=== PATIENT | male | born 1950 | race Caucasian/White ===

== ENCOUNTER → 2021-04-02 09:04 | Outpatient (CLI) | payer OTHER, SELFPAY ==
[2021-04-02 10:23] LABS: Add Manual Diff / Slide Review NO; Basophils Absolute Auto 0 /uL (0-100); Basophils Percent Auto 0.5 % (0-2); Eosinophils Absolute Auto 100 /uL (0-450); Eosinophils Percent Auto 1.9 % (2-4); Hemoglobin 15.9 g/dL (13.5-17.5); Lymphocytes Absolute Auto 1900 /uL (1100-4500); Lymphocytes Percent Auto 32.6 % (25-40); Mean Corpuscular HGB Conc 33.7 % (30-36); Mean Corpuscular Hemoglobin 31.7 PG (26-34); Mean Corpuscular Volume 94.1 fL (80-100); Monocytes Absolute Auto 400 /uL (0-900); Monocytes Percent Auto 6.8 % (3-14); Neutrophils Absolute Auto 3500 /uL (1500-7000); Neutrophils Percent Auto 58.2 % (50-75); Platelet Count 237 X10^3/uL (150-400); Red Cell Distribution Width 12.9 % (11.6-14.8); White Blood Cell Count 5.9 X10^3/uL (4.5-11.0)
[2021-04-02 11:06] LABS: Alanine Aminotransferase 28 IU/L (<50); Albumin 4.5 g/dL (3.5-5.0); Albumin Globulin Ratio 1.7 (1.0-2.8); Alkaline Phosphatase 53 U/L (38-126); Aspartate Aminotransferase 24 IU/L (17-59); Bilirubin Total 0.8 mg/dL (0.2-1.3); Blood Urea Nitrogen 17 mg/dL (9-20); Calcium 9.7 mg/dL (8.4-10.2); Carbon Dioxide 30 mmol/L (22-32); Chloride 101 mmol/L (98-107); Cholesterol 201 mg/dL (140-199); Estimated Glomerular Filt Rate > 60.0 mL/min (>60); Globulin 2.7 g/dL (1.7-4.1); Glucose 104 mg/dL (80-110); HDL Cholesterol 52 mg/dL (40-60); HEMOLYSIS < 15 (0-50); LDL Cholesterol Calculated 125 mg/dL (<100); Potassium 4.7 mmol/L (3.4-5.1); Sodium 140 mmol/L (137-145); Total Protein 7.2 g/dL (6.3-8.2); Triglycerides 121 mg/dL (35-150)
[2021-04-02 11:43] LABS: Prostate Specific Antigen 0.459 ng/mL (0.10-4.00)
== END ==
PROVIDERS: PCP Family Medicine; Referring Provider Family Medicine; Visit Provider Family Medicine
DX: C61 Malignant neoplasm of prostate (principal); Z13.220 Encounter for screening for lipoid disorders; Z85.46 Personal history of malignant neoplasm of prostate
CPT/HCPCS: 36415; 80053; 80061; 84153; 85025

== ENCOUNTER → 2021-04-07 09:14 | Outpatient (CLI) | payer OTHER, SELFPAY ==
[2021-04-09 11:58] LABS: Fecal Immunochemical Test Negative (Negative)
== END ==
PROVIDERS: PCP Family Medicine; Referring Provider Family Medicine; Visit Provider Family Medicine
DX: Z12.11 Encounter for screening for malignant neoplasm of colon (principal)
CPT/HCPCS: 82274

== ENCOUNTER 2022-02-22 11:51 | Observation (INO) | payer OTHER, SELFPAY ==
[2022-02-22] VITALS (25 sets, daily range): BP systolic 98–146; BP diastolic 60–118; PULSE 75–214; RESP 15–27; TEMP 36.3–36.6; O2SAT 94–100; BMI 26.4
--- NOTE | 2022-02-22 12:03 | DI.RAD.S_ITS ---
PROCEDURE: XR CHEST 1V INDICATIONS: chest pain TECHNIQUE: One view of the chest was acquired. COMPARISON: None. FINDINGS: Surgical changes and devices: None. Lungs and pleura: Lungs are clear. No pleural effusions or pneumothorax. Mediastinum: Mediastinal contours appear normal. Heart size is normal. Bones and chest wall: No suspicious bony lesions. Overlying soft tissues appear unremarkable. IMPRESSION: No acute cardiopulmonary process demonstrated radiographically. Dictated by: Justin Mclaughlin M.D. on 02/22/2022 at 12:47 Approved by: Justin Mclaughlin M.D. on 02/22/2022 at 12:47
--- NOTE | 2022-02-22 12:22 | ED_ITS ---
HPI - Chest Pain General Chief Complaint: Chest Pain Stated Complaint: Chest pain Time Seen by Provider: 02/22/22 12:08 Source: patient, family and old records reviewed Mode of arrival: Ambulatory Limitations: no limitations History of Present Illness HPI narrative: This is a 71-year-old male with history of prostate cancer who is had brachytherapy and on no other daily medications. Patient states that yesterday afternoon he started having tightness across the top of his chest along the clavicles which has now moved more substernally states it has been persistent it was significantly worse yesterday but still present. It has not radiate elsewhere such as back abdomen or arms. Patient states no diaphoresis. Shortness of breath is present with exertion. He denies any nausea or vomiting he feels lightheaded if he sits up very quickly but states that is actually been going on for a long time. He is had no syncopal episodes. No new swelling in his lower extremities he is had some mild swelling in his left leg over the years. Patient states they are following his PSA regularly for prostate cancer and it is down he is not on any daily medications no known cardiac history. States his only surgeries been cataract. No allergies to medications. No tobacco he drinks 2 or 3 alcoholic drinks nightly on the weekends and sometimes more frequently, no illicit. Primary care is Dr. Taylor. Did have a stress test 5-7 years ago at [facility] and he states it was uneventful. Has never had any other cardiac interventions. Related Data Previous Rx's Medication Instructions Recorded fluocinonide 0.05 % topical 1 applic topical BID-QID PRN dry 04/02/21 ointment skin #60 grams Allergies Allergy/AdvReac Type Severity Reaction Status Date / Time No Known Drug Allergies Allergy Unverified 05/21/21 09:25 Review of Systems Review of Systems ROS Unobtainable: All systems reviewed & are unremarkable except as noted in HPI and below Patient History Medical History Acne (~1984) Cataracts, bilateral (~2019) Hx of malignant neoplasm of prostate Onychomycosis of great toe Screening for hyperlipidemia Seborrheic keratoses Wears glasses Surgical History Anesthesia History of cataract removal with insertion of prosthetic lens History of surgery (~04/24/18) Family History Father Cancer Mother History of emphysema Brother History of heart disease Social History household members: spouse Smoking Status: Former smoker Tobacco: How many years used: 10 quit status: has quit before second hand exposure: Yes (childhood ) alcohol intake: current substance use type: does not use Smoking Status: Former smoker Substance Use Type: does not use Exam Narrative Exam Narrative: GENERAL: Alert and oriented x three, male in [id number] distress HEENT: Head normocephalic, atraumatic, EOMI, pupils reactive, face symmetric, moist mucous membranes NECK: Supple, full range of motion CARDIOVASCULAR: Irregularly irregular and tachycardic rate and rhythm without murmurs, rubs or gallops. No JVD. No swelling bilateral lower extremities. RESPIRATORY: Breath sounds equal bilaterally, no wheezes rales or rhonchi. ABDOMEN: Soft, nontender. Normoactive bowel sounds all 4 quadrants. No guarding or rebound, rigidity, no mass, pulsatile mass or bruit. : No CVA tenderness EXTREMITIES: Normal range of motion, no clubbing or edema. Neurovascularly intact NEUROLOGICAL: Cranial nerves II through XII grossly intact. Moving all extremities SKIN: Warm, dry, no petechiae, no rashes or lesions. Initial Vital Signs Initial Vital Signs: Vital Signs Temperature 97.5 F L 02/22/22 12:00 Pulse Rate 214 H 02/22/22 12:00 Respiratory Rate 18 02/22/22 12:00 Blood Pressure 146/118 H 02/22/22 12:00 Pulse Oximetry 100 02/22/22 12:00 Oxygen Delivery Method 02/22/22 12:00 Course Orders Ordered: ED Orders 02/22/22 12:03 XR chest 1V Stat EKG-12 Lead Stat 02/22/22 12:15 D Dimer Stat 02/22/22 12:24 BNP [NT-proBNP (BNP-Adult 18+)] Stat COVID19 -Nasal RAPID/Pre-Proc Stat Complete Blood Count AUTO DIFF Stat Comprehensive Metabolic Panel Stat Lipase Stat Magnesium Stat Troponin & CK Cardiac Panel Stat 02/22/22 12:43 TSH w/ Reflex to FT4 Stat 02/22/22 14:30 Trop I [Troponin I] Stat Acetaminophen (Acetaminophen 325 Mg Tablet) 975 mg PO Q8H PRN PRN Reason: Pain, Mild (1-3) Apixaban (Apixaban 5 Mg Tablet) 5 mg PO BID SKY Aspirin (Aspirin Ec 81 Mg Tablet) 81 mg PO DAILY [facility] Calcium Carbonate (Calcium Carbonate 500 Mg Tab) 1,000 mg PO Q4HR PRN PRN Reason: Dyspepsia Metoprolol Succinate (Metoprolol Er 25 Mg Tablet) 25 mg PO BID SKY Ondansetron HCl (Ondansetron 4 Mg/2 Ml Inj) 4 mg IV Q8HR PRN PRN Reason: Nausea And Vomiting Discontinued Medications Aspirin (Aspirin 81 Mg Chew Tab) 324 mg PO NOW ONE Stop: 02/22/22 12:23 Last Admin: 02/22/22 12:43 Dose: 324 mg Documented By: KORY Diltiazem HCl (Diltiazem 5 Mg/Ml Sdv) 10 mg IV NOW ONE Stop: 02/22/22 12:23 Last Admin: 02/22/22 12:47 Dose: 10 mg Documented By: KORY Sodium Chloride (Normal Saline 0.9%) 1,000 mls @ 1,000 mls/hr IV BOLUS ONE Stop: 02/22/22 13:21 Last Infusion: 02/22/22 14:00 Dose: 0 mls/hr Documented By: Admin: 02/22/22 12:43 Dose: 1,000 mls/hr Documented By: KORY DILTIAZEM (Diltiazem 125 Mg/125 Ml-D5w) 125 mg in 125 mls @ 5 mls/hr IV TITRATE [facility]; Protocol Last Admin: 02/22/22 14:03 Dose: Not Given Documented By: PHILIPP Metoprolol Tartrate (Metoprolol Ir 25 Mg Tablet) 25 mg PO NOW ONE Stop: 02/22/22 14:00 Last Admin: 02/22/22 14:05 Dose: 25 mg Documented By: PHILIPP Consultations Consultation #1: Dr. Ramos, willing to accept asked that we hold on diltiazem drip and metoprolol short-acting 25 mg preferentially. Ask for repeat troponin at the 2 hours carolyn before we put up stairs as he is having persistent chest pain despite his rate being improved although not totally controlled. We will recontact after 2nd troponin and EKG. Time: 14:11 Vital Signs Vital signs: Vital Signs - 8 hr 02/22/22 12:47 02/22/22 12:30 02/22/22 12:30 Pulse Rate 151 H 115 H Respiratory Rate 23 Blood Pressure 119/82 106/79 Pulse Oximetry 99 Oxygen Delivery Method 02/22/22 12:40 02/22/22 12:55 02/22/22 12:55 Pulse Rate 135 H 98 H Respiratory Rate 22 19 Blood Pressure 117/76 Pulse Oximetry 97 96 Oxygen Delivery Method Room Air 02/22/22 13:00 02/22/22 13:00 02/22/22 13:05 Pulse Rate 96 H Respiratory Rate 18 Blood Pressure 106/69 112/77 Pulse Oximetry 96 Oxygen Delivery Method Room Air 02/22/22 13:05 02/22/22 13:10 02/22/22 13:10 Pulse Rate 100 H 102 H Respiratory Rate 18 16 Blood Pressure 111/69 Pulse Oximetry 96 96 Oxygen Delivery Method 02/22/22 13:15 02/22/22 13:15 02/22/22 13:30 Pulse Rate 104 H Respiratory Rate 20 Blood Pressure 117/77 98/73 Pulse Oximetry 96 Oxygen Delivery Method 02/22/22 13:30 02/22/22 13:48 02/22/22 13:48 Pulse Rate 102 H 113 H Respiratory Rate 15 23 Blood Pressure 104/78 Pulse Oximetry 96 97 Oxygen Delivery Method 02/22/22 14:00 02/22/22 14:01 02/22/22 14:30 Pulse Rate 116 H 108 H Respiratory Rate 19 27 H Blood Pressure 123/79 Pulse Oximetry 98 99 Oxygen Delivery Method 02/22/22 14:40 02/22/22 14:40 02/22/22 15:00 Pulse Rate 106 H Respiratory Rate 27 H Blood Pressure 124/65 108/69 Pulse Oximetry 97 Oxygen Delivery Method 02/22/22 15:00 02/22/22 15:20 Pulse Rate 91 H Respiratory Rate 22 Blood Pressure 111/68 Pulse Oximetry 98 Oxygen Delivery Method MDM - Chest Pain Lab Data Result diagrams: 02/22/22 12:24 02/22/22 12:24 Labs: Lab Results 02/22/22 02/22/22 02/22/22 Range/Units 12:15 12:24 12:24 WBC 8.6 (4.5-11.0) X10^3/uL RBC 5.17 (4.5-5.9) X10^6/uL Hgb 16.9 (13.5-17.5) g/dL Hct 48.6 (41-53) % MCV 94.0 (80-100) fL MCH 32.8 (26-34) PG MCHC 34.8 (30-36) % RDW 12.7 (11.6-14.8) % Plt Count 230 (150-400) X10^3/uL Neut % (Auto) 62.9 (50-75) % Lymph % (Auto) 27.3 (25-40) % Dane % (Auto) 8.7 (3-14) % Eos % (Auto) 0.6 L (2-4) % Baso % (Auto) 0.5 (0-2) % Neut # (Auto) 5400 (2398-2470) /uL Lymph # (Auto) 2400 (5994-6265) /uL Dane # (Auto) 700 (0-900) /uL Eos # (Auto) 100 (0-450) /uL Baso # (Auto) 0 (0-100) /uL D-Dimer 633 H (<500) ng/ml Sodium 141 (137-145) mmol/L Potassium 3.6 (3.4-5.1) mmol/L Chloride 102 (98-107) mmol/L Carbon Dioxide 25 (22-32) mmol/L BUN 13 (9-20) mg/dL Creatinine 0.99 (0.66-1.25) mg/dL Estimated GFR > 60 (>60) mL/min BUN/Creatinine Ratio 13.1 (6-22) Glucose 106 (80-110) mg/dL Calcium 9.5 (8.4-10.2) mg/dL Magnesium 2.1 (1.6-2.3) mg/dL Total Bilirubin 1.1 (0.2-1.3) mg/dL AST 24 (17-59) IU/L ALT 20 (<50) IU/L Alkaline Phosphatase 65 (38-126) U/L Total Creatine Kinase 50 L (55-170) U/L CK-MB (CK-2) TNP CK-MB (CK-2) Rel Index TNP Troponin I < 0.012 (0.01-0.034) ng/mL NT-Pro-B Natriuret Pep (<125) pg/mL Total Protein 8.2 (6.3-8.2) g/dL Albumin 4.5 (3.5-5.0) g/dL Globulin 3.7 (1.7-4.1) g/dL Albumin/Globulin Ratio 1.2 (1.0-2.8) Lipase 41 (23-300) U/L TSH (0.47-4.68) uIU/mL SARS-CoV-2 (PCR) (Negative) 02/22/22 02/22/22 02/22/22 Range/Units 12:24 12:24 12:43 WBC (4.5-11.0) X10^3/uL RBC (4.5-5.9) X10^6/uL Hgb (13.5-17.5) g/dL Hct (41-53) % MCV (80-100) fL MCH (26-34) PG MCHC (30-36) % RDW (11.6-14.8) % Plt Count (150-400) X10^3/uL Neut % (Auto) (50-75) % Lymph % (Auto) (25-40) % Dane % (Auto) (3-14) % Eos % (Auto) (2-4) % Baso % (Auto) (0-2) % Neut # (Auto) (1935-1009) /uL Lymph # (Auto) (4774-9229) /uL Dane # (Auto) (0-900) /uL Eos # (Auto) (0-450) /uL Baso # (Auto) (0-100) /uL D-Dimer (<500) ng/ml Sodium (137-145) mmol/L Potassium (3.4-5.1) mmol/L Chloride (98-107) mmol/L Carbon Dioxide (22-32) mmol/L BUN (9-20) mg/dL Creatinine (0.66-1.25) mg/dL Estimated GFR (>60) mL/min BUN/Creatinine Ratio (6-22) Glucose (80-110) mg/dL Calcium (8.4-10.2) mg/dL Magnesium (1.6-2.3) mg/dL Total Bilirubin (0.2-1.3) mg/dL AST (17-59) IU/L ALT (<50) IU/L Alkaline Phosphatase (38-126) U/L Total Creatine Kinase (55-170) U/L CK-MB (CK-2) CK-MB (CK-2) Rel Index Troponin I (0.01-0.034) ng/mL NT-Pro-B Natriuret Pep 279 H (<125) pg/mL Total Protein (6.3-8.2) g/dL Albumin (3.5-5.0) g/dL Globulin (1.7-4.1) g/dL Albumin/Globulin Ratio (1.0-2.8) Lipase (23-300) U/L TSH 3.51 (0.47-4.68) uIU/mL SARS-CoV-2 (PCR) Negative (Negative) 02/22/22 Range/Units 14:30 WBC (4.5-11.0) X10^3/uL RBC (4.5-5.9) X10^6/uL Hgb (13.5-17.5) g/dL Hct (41-53) % MCV (80-100) fL MCH (26-34) PG MCHC (30-36) % RDW (11.6-14.8) % Plt Count (150-400) X10^3/uL Neut % (Auto) (50-75) % Lymph % (Auto) (25-40) % Dane % (Auto) (3-14) % Eos % (Auto) (2-4) % Baso % (Auto) (0-2) % Neut # (Auto) (1716-9357) /uL Lymph # (Auto) (0845-8062) /uL Dane # (Auto) (0-900) /uL Eos # (Auto) (0-450) /uL Baso # (Auto) (0-100) /uL D-Dimer (<500) ng/ml Sodium (137-145) mmol/L Potassium (3.4-5.1) mmol/L Chloride (98-107) mmol/L Carbon Dioxide (22-32) mmol/L BUN (9-20) mg/dL Creatinine (0.66-1.25) mg/dL Estimated GFR (>60) mL/min BUN/Creatinine Ratio (6-22) Glucose (80-110) mg/dL Calcium (8.4-10.2) mg/dL Magnesium (1.6-2.3) mg/dL Total Bilirubin (0.2-1.3) mg/dL AST (17-59) IU/L ALT (<50) IU/L Alkaline Phosphatase (38-126) U/L Total Creatine Kinase (55-170) U/L CK-MB (CK-2) CK-MB (CK-2) Rel Index Troponin I < 0.012 (0.01-0.034) ng/mL NT-Pro-B Natriuret Pep (<125) pg/mL Total Protein (6.3-8.2) g/dL Albumin (3.5-5.0) g/dL Globulin (1.7-4.1) g/dL Albumin/Globulin Ratio (1.0-2.8) Lipase (23-300) U/L TSH (0.47-4.68) uIU/mL SARS-CoV-2 (PCR) (Negative) Imaging Data Chest x-ray: Radiologist's Impression: [address] [address] XRay Report Signed Patient: Boaz Naranjo MR#: [id number] : 1950 Acct:[id number] Age/Sex: 71 / M Date of Service: 02/22/22 Loc: ED Accession Number: [id number] ?? Procedure: XR chest 1V Ordering Provider: Tess Marroquin D.O. PROCEDURE:? XR CHEST 1V ? INDICATIONS:? chest pain ? TECHNIQUE:? One view of the chest was acquired.? ? COMPARISON:? None. ? FINDINGS:? ? Surgical changes and devices:? None.? ? Lungs and pleura:? Lungs are clear.? No pleural effusions or pneumothorax.? ? Mediastinum:? Mediastinal contours appear normal.? Heart size is normal.? ? Bones and chest wall:? No suspicious bony lesions.? Overlying soft tissues appear unremarkable.? ? IMPRESSION:? No acute cardiopulmonary process demonstrated radiographically. ? ? Dictated by: Justin Mclaughlin M.D. on 02/22/2022 at 12:47 ? ? Approved by: Justin Mclaughlin M.D. on 02/22/2022 at 12:47?? ECG Data Attestation: I personally reviewed and interpreted this ECG as follows: Prior ECG tracings: not available for review Interpretation: AFib with RVR, rate of 133 QRS 86 QTC of 461. No acute ST elevation or depr ession noted. No priors for comparison. MDM Narrative Medical decision making narrative: This is a 71-year-old male with AFib with RVR with chest pain/pressure. Patient does not have any known AFib and does not have a sensation of fast heartbeat. Patient's heart rate was as high as 200 but is more consistently 150-130. Is responsive to diltiazem but does drop his pressure. Patient initial troponin is despite 24 hours of chest pain, chest x-ray shows no acute change. BNP is 279 patient does not appear fluid overloaded no obvious electrolyte abnormalities that are cause for his AFib RVR. Patient case is discussed with hospitalist discussed adding on a D-dimer as he has a remote history of prostate cancer with low PSA levels and repeat troponin at 2:00 a.m. carolyn and EKG if these are still negative plan for admission for AFib RVR. Critical Care Time Critical Care Time Critical Care Time: Yes Total Critical Care Time: 35 Attestation: The high probability of a clinically significant, sudden or life threatening deterioration of the [] system(s) required my full and direct attention, intervention and personal management. The aggregate critical care time was [] minutes. This time is in addition to time spent performing reported procedures but includes the following: [x] Data Review and interpretation [x] Patient assessment and monitoring of vital signs [x] Documentation [x] Medication orders and management Discharge Plan Departure Patient Disposition: Admitted as Observation Clinical Impression: Atrial fibrillation with rapid ventricular response, Chest pain Admit Date/Time: 02/22/22 15:20 Admit Provider: Tenzin Ramos
[2022-02-22 12:40] LABS: Add Manual Diff / Slide Review NO; Basophils Absolute Auto 0 /uL (0-100); Basophils Percent Auto 0.5 % (0-2); Eosinophils Absolute Auto 100 /uL (0-450); Eosinophils Percent Auto 0.6 % (2-4); Hematocrit 48.6 % (41-53); Hemoglobin 16.9 g/dL (13.5-17.5); Lymphocytes Absolute Auto 2400 /uL (1100-4500); Lymphocytes Percent Auto 27.3 % (25-40); Mean Corpuscular HGB Conc 34.8 % (30-36); Mean Corpuscular Hemoglobin 32.8 PG (26-34); Monocytes Absolute Auto 700 /uL (0-900); Monocytes Percent Auto 8.7 % (3-14); Neutrophils Absolute Auto 5400 /uL (1500-7000); Neutrophils Percent Auto 62.9 % (50-75); Platelet Count 230 X10^3/uL (150-400); Red Blood Cell Count 5.17 X10^6/uL (4.5-5.9); Red Cell Distribution Width 12.7 % (11.6-14.8); White Blood Cell Count 8.6 X10^3/uL (4.5-11.0)
[2022-02-22] MEDS: ASPIRIN 81 MG CHEW TAB 324 MG PO (12:43)
[2022-02-22] MEDS: SODIUM CHLORIDE 0.9% 1,000 ML 1000 ML IV (12:43)
[2022-02-22] MEDS: dilTIAZem 5 MG/ML SDV 10 MG IV (12:47)
[2022-02-22 12:51] LABS: Alanine Aminotransferase 20 IU/L (<50); Albumin 4.5 g/dL (3.5-5.0); Albumin Globulin Ratio 1.2 (1.0-2.8); Alkaline Phosphatase 65 U/L (38-126); Aspartate Aminotransferase 24 IU/L (17-59); BUN Creatinine Ratio 13.1 (6-22); Bilirubin Total 1.1 mg/dL (0.2-1.3); Blood Urea Nitrogen 13 mg/dL (9-20); Calcium 9.5 mg/dL (8.4-10.2); Carbon Dioxide 25 mmol/L (22-32); Chloride 102 mmol/L (98-107); Creatine Kinase 50 U/L (55-170); Estimated Glomerular Filt Rate > 60 mL/min (>60); Globulin 3.7 g/dL (1.7-4.1); Glucose 106 mg/dL (80-110); HEMOLYSIS 20 (0-50); Lipase 41 U/L (23-300); Magnesium 2.1 mg/dL (1.6-2.3); Potassium 3.6 mmol/L (3.4-5.1); Sodium 141 mmol/L (137-145); Total Protein 8.2 g/dL (6.3-8.2)
[2022-02-22 13:02] LABS: Troponin I < 0.012 ng/mL (0.01-0.034)
[2022-02-22 13:05] LABS: COVID19 -Nasal RAPID Negative (Negative)
[2022-02-22 13:07] LABS: NT-proBNP (BNP-Adult 18+) 279 pg/mL (<125)
[2022-02-22 13:30] LABS: TSH w/ Reflex to FT4 3.51 uIU/mL (0.47-4.68)
[2022-02-22] MEDS: METOPROLOL IR 25 MG TABLET PO (14:05)
[2022-02-22 14:24] LABS: D Dimer 633 ng/ml (<500)
[2022-02-22 15:02] LABS: Troponin I < 0.012 ng/mL (0.01-0.034)
--- NOTE | 2022-02-22 15:28 | DI.ECHO.S_ITS ---
[place] [facility]---------+ [facility] +---------+ : : [address] : : : : [id number] : : : : Phone: [phone]+ Echocardiogram Report + + :Name: HUMBLE MCDUFFIE Study Date: 02/23/2022 Height: 72 in : :[facility] ReadingLocation: Weight: 195 lb: : Gender: Male BSA: 2.1 m2 : :: 1950 Age: 71 yrs BP: 93/56 mmHg: :Reason For Study: CHEST PAIN : :Ordering Physician: CHELSEY, : :NEAL MARK Performed By: Keena Maher : :Referring: NEAL BARBOSA : + + Interpretation Summary The ejection fraction is estimated to be 55-60%. There are no obvious focal wall motion abnormalities noted . Diastolic parameters suggest probable normal left ventricular diastolic function and normal filling pressures. The right ventricle is normal in size and function. Pulmonary artery pressures cannot be estimated because of the lack of a measurable TR jet velocity. No significnant valvular disease. Procedure: A two-dimensional transthoracic echocardiogram with color flow and Doppler was performed. The study quality was technically adequate. There is no prior echocardiogram noted for this patient. The patient was in sinus rhythm with heart rates between 65-72 bpm during the exam. Left Ventricle: The left ventricle is normal in size and wall thickness. The ejection fraction is estimated to be 55-60%. There are no obvious focal wall motion abnormalities noted but poor endocardial definition reduces the sensitivity for the detection of such. Diastolic parameters suggest probable normal left ventricular diastolic function and normal filling pressures. Right Ventricle: The right ventricle is normal in size and function. Atria: The left atrial size is normal. Right atrial size is normal. There is no Doppler evidence for an interatrial shunt. Mitral Valve: The mitral valve is normal in structure and function. There is trace mitral regurgitation. Aortic Valve: The aortic valve is trileaflet. The aortic valve opens well. There is no aortic valve stenosis. No aortic regurgitation is present. Tricuspid Valve: The tricuspid valve is normal in structure and function. No tricuspid regurgitation. Pulmonary artery pressures cannot be estimated because of the lack of a measurable TR jet velocity. Pulmonic Valve: The pulmonic valve leaflets are thin and pliable; valve motion is normal. There is no pulmonic valvular regurgitation. Great Vessels: The aortic root is normal size. The dimensions of the ascending aorta are normal. The IVC is of normal diameter and collapses greater than 50% with a sniff. This suggests a low right atrial pressure of 3 mm Hg. Pericardium/ Pleura There is no pericardial effusion. There is no pleural effusion. MMode/2D Measurements & Calculations LVIDd: 4.5 cm LVOT diam: 2.0 cm LVIDs: 3.0 cm Ao root diam: 3.2 cm FS: 33.1 % asc Aorta Diam: 3.4 cm EPSS: 0.66 cm Ao Arch Diam (Prox Trans): 2.8 cm IVSd: 0.74 cm LVPWd: 0.92 cm LV marin. diameter/BSA (cm/m^2): 2.1 LV sys. diameter/BSA (cm/m^2): 1.4 LA A2 area: 18.5 cm2 RA long axis: 4.8 cm LA A4 area: 20.2 cm2 RA area: 16.8 cm2 LA length (vol): 5.4 cm RA vol: 50.0 ml LA vol: 59.2 ml RA : 23.7 ml/m2 LA vol index: 28.1 ml/m2 IVC diam: 1.7 cm RVD1 (basal): 3.7 cm RVD2 (mid): 3.0 cm TAPSE: 1.7 cm Doppler Measurements & Calculations Ao V2 max: 135.9 cm/sec LVOT Max Juan: 88.8 cm/sec Ao V2 mean: 97.6 cm/sec LV V1 max P.2 mmHg Ao max P.4 mmHg LV V1 VTI: 17.3 cm Ao mean P.2 mmHg MATTHEW(I,D): 2.0 cm2 Ao V2 VTI: 28.6 cm MATTHEW(V,D): 2.1 cm2 sev ratio: 0.60 MATTHEW indexed to BSA (cm^2/m^2): 0.94 MV E max juan: 68.8 cm/sec PA V2 max: 103.0 cm/sec MV A max juan: 49.1 cm/sec PA V2 mean: 73.6 cm/sec MV E/A: 1.4 PA mean P.3 mmHg Med Peak E' Juan: 7.7 cm/sec PA pr(Accel): 10.5 mmHg E/E' med: 8.9 Lat Peak E' Juan: 8.7 cm/sec E/E' lat: 7.9 E/e' average: 8.4 MV dec time: 0.23 sec SVLVOT): 56.4 ml Reading Physician:THOMAS
--- NOTE | 2022-02-22 16:17 | P.HP_ITS ---
History of Present Illness History of Present Illness Date Patient Seen: 02/22/22 Time Patient Seen: 16:24 Chief complaint: Chest pain Narrative: This is a 71 year old male with PMH of prostate cancer who presents to the emergency room with chest discomfort. Patient states he developed bilateral upper and lateral chest pain (under his shoulders) starting yesterday evening. He took 2 aspirin which did not initially help. He stated it was slightly worse with movement. He was able to eat dinner, and went to bed. Early in the morning around 3 am he woke up this time with substernal chest pain. It was sharp, non- radiating, and associated with dyspnea on exertion. He took more aspirin but this did not help his symptoms. He went to the walk in clinic whom referred him to the ER. He denies palpitations, fever, chills, nausea, vomiting, abdominal pain, lower extremity edema. He reports a chronic left leg swelling which is unchanged recently. \ In the ER, patient was found to be in rapid afib. He was given dilt which slowed his rate but it climbed up. He was also given metorpolol tartarate 25 mg. Dilt drip was ordered but never ininiated. Troponins were negative x2. EKG showed afib with RVR without significant ST or T wave changes. Labs showed an unremar kable CBC, D-dimer was 633 (negative with age adjusted value), chemistries were unremarkable, TSH was 3.51, and troponins were negative x2. COVID testing was negative. CXR showed no acute cardiopulmonary disease. He was admitted for new diagnosis of afib with RVR. Patient History Medical History Acne (~1984) Cataracts, bilateral (~2019) Hx of malignant neoplasm of prostate Onychomycosis of great toe Screening for hyperlipidemia Seborrheic keratoses Wears glasses Surgical History Anesthesia History of cataract removal with insertion of prosthetic lens History of surgery (~04/24/18) Family & Social History Family History Father Cancer Mother History of emphysema Brother History of heart disease Social History: household members spouse Prior Living Arrangements House Safety & Behavioral: Feels Safe in Current Yes Environment Been Physically Hurt or No Threatened By a Person Tobacco & Substance use: Smoking Status Former smoker alcohol intake current Substance Use Type does not use Meds Home Medications and Allergies Home Medications Medication Instructions Recorded Confirmed Type fluocinonide 0.05 % topical 1 applic topical BID-QID PRN dry 04/02/21 02/22/22 Rx ointment skin #60 grams Allergies Allergy/AdvReac Type Severity Reaction Status Date / Time No Known Drug Allergies Allergy Unverified 05/21/21 09:25 Review of Systems Review of Systems Narrative: All other systems reviewed with the patient and are negative unless otherwise s tated. Exam Vital Signs (past 8 hours): - 02/22/22 12:00 02/22/22 12:47 02/22/22 12:06 Temperature 97.5 F L Pulse Rate 214 H 151 H 140 H Respiratory Rate 18 23 Blood Pressure 146/118 H 119/82 Pulse Oximetry 100 98 Oxygen Delivery Method Room Air Oxygen Flow Rate 02/22/22 12:08 02/22/22 12:08 02/22/22 12:30 Temperature Pulse Rate 127 H Respiratory Rate 18 Blood Pressure 143/83 H 106/79 Pulse Oximetry 98 Oxygen Delivery Method Oxygen Flow Rate 02/22/22 12:30 02/22/22 12:40 02/22/22 12:55 Temperature Pulse Rate 115 H 135 H Respiratory Rate 23 22 Blood Pressure 117/76 Pulse Oximetry 99 97 Oxygen Delivery Method Oxygen Flow Rate 02/22/22 12:55 02/22/22 13:00 02/22/22 13:00 Temperature Pulse Rate 98 H 96 H Respiratory Rate 19 18 Blood Pressure 106/69 Pulse Oximetry 96 96 Oxygen Delivery Method Room Air Room Air Oxygen Flow Rate 02/22/22 13:05 02/22/22 13:05 02/22/22 13:10 Temperature Pulse Rate 100 H 102 H Respiratory Rate 18 16 Blood Pressure 112/77 Pulse Oximetry 96 96 Oxygen Delivery Method Oxygen Flow Rate 02/22/22 13:10 02/22/22 13:15 02/22/22 13:15 Temperature Pulse Rate 104 H Respiratory Rate 20 Blood Pressure 111/69 117/77 Pulse Oximetry 96 Oxygen Delivery Method Oxygen Flow Rate 02/22/22 13:30 02/22/22 13:30 02/22/22 13:48 Temperature Pulse Rate 102 H Respiratory Rate 15 Blood Pressure 98/73 104/78 Pulse Oximetry 96 Oxygen Delivery Method Oxygen Flow Rate 02/22/22 13:48 02/22/22 14:00 02/22/22 14:01 Temperature Pulse Rate 113 H 116 H Respiratory Rate 23 19 Blood Pressure 123/79 Pulse Oximetry 97 98 Oxygen Delivery Method Oxygen Flow Rate 02/22/22 14:30 02/22/22 14:40 02/22/22 14:40 Temperature Pulse Rate 108 H 106 H Respiratory Rate 27 H 27 H Blood Pressure 124/65 Pulse Oximetry 99 97 Oxygen Delivery Method Oxygen Flow Rate 02/22/22 15:00 02/22/22 15:00 02/22/22 15:20 Temperature Pulse Rate 91 H Respiratory Rate 22 Blood Pressure 108/69 111/68 Pulse Oximetry 98 Oxygen Delivery Method Oxygen Flow Rate 02/22/22 16:02 Temperature 97.3 F L Pulse Rate 96 H Respiratory Rate 17 Blood Pressure 115/69 Pulse Oximetry 98 Oxygen Delivery Method Oxygen Flow Rate 0 Oxygen Delivery Method Room Air Oxygen Flow Rate 0 Narrative Exam Narrative: General:? Patient is well developed and well nourished, in no distress at this time. HEENT:? Normocephalic, atraumatic, extraocular muscles intact, oral pharynx is clear and mucous membranes are moist. Neck: supple and symmetric, trachea is midline, no cervical adenopathy. Negative for JVD Chest:? Normal AP diameter and contour without kyphoscoliosis, no tachypnea, equal chest rise bilaterally. Lungs:? CTA b/l no wheezing rhonchi or rales. Cardio:?irregularly irregular rhythm with normal rate Abdomen: S NT ND. Musculoskeletal:? Muscle strength and tone are equal within normal limits, no deformity. Extremities: No edema or joint effusions. No cyanosis or clubbing. LLE with skin darkening and chronic venous changes, slightly larger than right. Skin:? Pale,? Warm to touch,dry and intact without rashes, ulcerations or petechiae.? Neuro:? Alert and orientated x3,? sensation to touch intact in all extremities, no gross deficits noted of cranial nerves. Psych:? Patient has a well-kept appearance, appropriate affect, mental status attitude thought context and judgment are appropriate for age. Objective ECG Impression: afib with RVR, no significant ST or T wave abnormalities, as interpreted by me. Labs Result Diagrams: 02/22/22 12:24 02/22/22 12:24 Labs: Laboratory Results - last 24 hr 02/22/22 02/22/22 02/22/22 12:15 12:24 12:24 WBC 8.6 RBC 5.17 Hgb 16.9 Hct 48.6 MCV 94.0 MCH 32.8 MCHC 34.8 RDW 12.7 Plt Count 230 Neut % (Auto) 62.9 Lymph % (Auto) 27.3 [place] % (Auto) 8.7 Eos % (Auto) 0.6 L Baso % (Auto) 0.5 Neut # (Auto) 5400 Lymph # (Auto) 2400 [place] # (Auto) 700 Eos # (Auto) 100 Baso # (Auto) 0 D-Dimer 633 H Sodium 141 Potassium 3.6 Chloride 102 Carbon Dioxide 25 BUN 13 Creatinine 0.99 Estimated GFR > 60 BUN/Creatinine Ratio 13.1 Glucose 106 Calcium 9.5 Magnesium 2.1 Total Bilirubin 1.1 AST 24 ALT 20 Alkaline Phosphatase 65 Total Creatine Kinase 50 L CK-MB (CK-2) TNP CK-MB (CK-2) Rel Index TNP Troponin I < 0.012 NT-Pro-B Natriuret Pep Total Protein 8.2 Albumin 4.5 Globulin 3.7 Albumin/Globulin Ratio 1.2 Lipase 41 TSH SARS-CoV-2 (PCR) 02/22/22 02/22/22 02/22/22 12:24 12:24 12:43 WBC RBC Hgb Hct MCV MCH MCHC RDW Plt Count Neut % (Auto) Lymph % (Auto) [place] % (Auto) Eos % (Auto) Baso % (Auto) Neut # (Auto) Lymph # (Auto) [place] # (Auto) Eos # (Auto) Baso # (Auto) D-Dimer Sodium Potassium Chloride Carbon Dioxide BUN Creatinine Estimated GFR BUN/Creatinine Ratio Glucose Calcium Magnesium Total Bilirubin AST ALT Alkaline Phosphatase Total Creatine Kinase CK-MB (CK-2) CK-MB (CK-2) Rel Index Troponin I NT-Pro-B Natriuret Pep 279 H Total Protein Albumin Globulin Albumin/Globulin Ratio Lipase TSH 3.51 SARS-CoV-2 (PCR) Negative 02/22/22 14:30 WBC RBC Hgb Hct MCV MCH MCHC RDW Plt Count Neut % (Auto) Lymph % (Auto) [place] % (Auto) Eos % (Auto) Baso % (Auto) Neut # (Auto) Lymph # (Auto) [place] # (Auto) Eos # (Auto) Baso # (Auto) D-Dimer Sodium Potassium Chloride Carbon Dioxide BUN Creatinine Estimated GFR BUN/Creatinine Ratio Glucose Calcium Magnesium Total Bilirubin AST ALT Alkaline Phosphatase Total Creatine Kinase CK-MB (CK-2) CK-MB (CK-2) Rel Index Troponin I < 0.012 NT-Pro-B Natriuret Pep Total Protein Albumin Globulin Albumin/Globulin Ratio Lipase TSH SARS-CoV-2 (PCR) Assessment & Plan Assessment & Plan narrative: 1. New diagnosis of atrial fibrillation with RVR - Improved rate with metoprolol and dilt given in the ER. Continue metoprolol succinate 25 mg PO BID for now. Continue to make adjustments depending on telemetry and rate. - TTE ordered - r/o ACS with troponin at 8 hour carolyn - given LLE swelling, r/o DVT. If + for DVT check CTA, if negative D-dimer is below age adjusted cutoff. - CHADS-VASC of 1 at this time. If DVT study negative will start asa daily for stroke prevention. - TSH within normal limits. Check A1c and Am lipid panel. 2. History of prostate cancer Dispo: admitted under observation status, probable discharge home tomorrow if rate is controlled and echocardiogram without significant findings. Code: Full, surrogate decision maker is patient's spouse DVT: pending ultrasound, if negative will be on asa, otherwise low risk for DVT and ppx not indicated. I have utilized all available immediate resources to obtain, update, or review the patient's current medications. Time Spent With Patient Critical Care time: I spent a total of [] minutes of critical care time on this patient's care today; this time is exclusive of procedural time. Scores CHADS-VASc Congestive heart failure: no Hypertension: no Age 75 years or older: no Diabetes mellitus: no Stroke, TIA, or TE: no Vascular disease: no Age 65 to 74 years: yes Sex category (female): Male CHADS-VASc Score: 1 Quality MIPS - Admit I confirm the patient?s Advance Care Plan is present, Code status is documented, Surrogate decision maker is in patient?s record [If Yes, STOP here]: Yes
--- NOTE | 2022-02-22 16:26 | DI.US.S_ITS ---
PROCEDURE: US PERIPH VENOUS LOW EXTREM BI INDICATIONS: AFIB, PAIN, R/O DVT TECHNIQUE: Real-time imaging, as well as color and pulse Doppler interrogation, were performed of the deep veins of both legs from the inguinal ligament to the popliteal fossa. COMPARISON: None. FINDINGS: Right: The right greater saphenous vein, common femoral vein, and popliteal veins appear patent. No intraluminal thrombus identified. There is duplicated versus multiple branching segments involving the right mid femoral vein. Right calf veins not well visualized. Left: There is apparent thrombosis involving the left mid femoral vein branches with associated slow flow. The left mid femoral vein appears duplicated versus containing multiple branching segments. The deep venous system proximal to the femoral vein appear patent without intraluminal thrombus. The calf veins were not well visualized. IMPRESSION: Deep venous thrombosis involving segment of the left mid femoral vein. Preliminary findings were relayed by the dev manager at time of study completion. Dictated by: Ray Butcher M.D. on 02/22/2022 at 17:41 Approved by: Ray Butcher M.D. on 02/22/2022 at 17:46
--- NOTE | 2022-02-22 18:50 | DI.CT.S_ITS ---
PROCEDURE: CT ANGIO CHEST PE PROTOCOL INDICATIONS: Chest pain, short of breath TECHNIQUE: After the administration of intravenous contrast, 2 mm thick sections acquired from the pulmonary apices to the posterior costophrenic angles. For radiation dose reduction, the following was used: automated exposure control, adjustment of mA and/or kV according to patient size. COMPARISON: None. FINDINGS: Image quality: Excellent. Pulmonary arteries: Pulmonary arteries are normal in size, and demonstrate no intraluminal filling defects to suggest central pulmonary embolism. Lungs and pleura: Lungs are clear. No pleural effusions or pneumothorax. Central and peripheral airways are patent. Mild platelike atelectasis both lung bases. Minimal emphysematous changes of both lung apices. Mediastinum: Heart size is normal, without pericardial effusion. No mediastinal or hilar adenopathy. Thoracic aorta is normal in caliber and enhancement. Esophagus is normal in caliber, without hiatal hernia. Bones and chest wall: No suspicious bony lesions. Ribs and thoracic spine appear intact throughout. Thyroid gland unremarkable. No axillary or supraclavicular adenopathy. Abdomen: Visualized upper abdominal solid organs appear normal in the early arterial phase of enhancement. Incidental right hepatic 1.4 cm cyst IMPRESSION: No evidence of pulmonary embolism, aortic dissection or aneurysm. Bibasilar platelike atelectasis and mild apical pulmonary emphysema Approved by: Josh Cuenca M.D. on 02/22/2022 at 18:20
[2022-02-22] MEDS: METOPROLOL ER 25 MG TABLET PO (20:43)
[2022-02-22] MEDS: APIXABAN 5 MG TABLET PO (20:43)
[2022-02-22 20:54] LABS: Troponin I < 0.012 ng/mL (0.01-0.034)
[2022-02-23] VITALS (8 sets, daily range): BP systolic 93–120; BP diastolic 56–73; PULSE 56–86; RESP 14–18; TEMP 36.4–36.7; O2SAT 95–96
--- NOTE | 2022-02-23 00:21 | PC.NURSE ---
Pt new diagnosis of Afib RVR. Started on 25 mg ER metoprolol tonight. Pressure dropped to 93/56,with MAP 71, other vitals stable. Provider notified. Stated if MAP drops below 65, give 250 cc bolus. Pt sleeping comfortably currently.
[2022-02-23 05:59] LABS: Add Manual Diff / Slide Review NO; Basophils Absolute Auto 0 /uL (0-100); Basophils Percent Auto 0.5 % (0-2); Eosinophils Absolute Auto 100 /uL (0-450); Eosinophils Percent Auto 1.1 % (2-4); Hematocrit 45.6 % (41-53); Hemoglobin 15.7 g/dL (13.5-17.5); Lymphocytes Absolute Auto 2100 /uL (1100-4500); Lymphocytes Percent Auto 31.1 % (25-40); Mean Corpuscular HGB Conc 34.5 % (30-36); Mean Corpuscular Hemoglobin 32.4 PG (26-34); Mean Corpuscular Volume 93.8 fL (80-100); Monocytes Absolute Auto 600 /uL (0-900); Monocytes Percent Auto 8.8 % (3-14); Neutrophils Absolute Auto 3900 /uL (1500-7000); Neutrophils Percent Auto 58.5 % (50-75); Platelet Count 217 X10^3/uL (150-400); Red Blood Cell Count 4.86 X10^6/uL (4.5-5.9); Red Cell Distribution Width 12.7 % (11.6-14.8); White Blood Cell Count 6.6 X10^3/uL (4.5-11.0)
[2022-02-23 06:12] LABS: BUN Creatinine Ratio 15.2 (6-22); Blood Urea Nitrogen 17 mg/dL (9-20); Carbon Dioxide 29 mmol/L (22-32); Chloride 103 mmol/L (98-107); Cholesterol 169 mg/dL (140-199); Estimated Glomerular Filt Rate > 60 mL/min (>60); Glucose 108 mg/dL (80-110); HDL Cholesterol 42 mg/dL (40-60); HEMOLYSIS < 15 (0-50); LDL Cholesterol Calculated 116 mg/dL (<100); Magnesium 2.1 mg/dL (1.6-2.3); Potassium 4.2 mmol/L (3.4-5.1); Sodium 139 mmol/L (137-145); Triglycerides 56 mg/dL (35-150)
[2022-02-23 06:38] LABS: Hemoglobin A1C% w Est Avg Glu 5.5 % (4.0-6.0)
[2022-02-23] MEDS: METOPROLOL ER 25 MG TABLET PO (09:04)
--- NOTE | 2022-02-23 09:11 | P.DS_ITS ---
History of Present Illness History of Present Illness Date Patient Seen: 02/23/22 Time Patient Seen: 09:11 Chief complaint: Chest pain Narrative: This is a 71 year old male with PMH of prostate cancer who presents to the emergency room with chest discomfort. Patient states he developed bilateral upper and lateral chest pain (under his shoulders) starting yesterday evening. He took 2 aspirin which did not initially help. He stated it was slightly worse with movement. He was able to eat dinner, and went to bed. Early in the morning around 3 am he woke up this time with substernal chest pain. It was sharp, non- radiating, and associated with dyspnea on exertion. He took more aspirin but this did not help his symptoms. He went to the walk in clinic whom referred him to the ER. He denies palpitations, fever, chills, nausea, vomiting, abdominal pain, lower extremity edema. He reports a chronic left leg swelling which is unchanged recently. \ In the ER, patient was found to be in rapid afib. He was given dilt which slowed his rate but it climbed up. He was also given metorpolol tartarate 25 mg. Dilt drip was ordered but never ininiated. Troponins were negative x2. EKG showed afib with RVR without significant ST or T wave changes. Labs showed an unremar kable CBC, D-dimer was 633 (negative with age adjusted value), chemistries were unremarkable, TSH was 3.51, and troponins were negative x2. COVID testing was negative. CXR showed no acute cardiopulmonary disease. He was admitted for new diagnosis of afib with RVR. Discharge Providers Provider Date of admission: 02/22/22 15:20 Discharge Date: 02/23/22 Primary care physician: Keo Roach DO Discharge provider: Tenzin Ramos DO Summary Hospital Course Discharge Diagnosis: 1. New diagnosis of atrial fibrillation with RVR, paroxysmal 2. History of prostate cancer 3. DVT of the LLE Hospital Course: This is a 71 year old male with PMH of prostate cancer who presented with chest pain in the setting of afib with RVR. He complained of some chronic LLE swelling, US was obtained and was positive for a DVT. He was started on coumadin given cost, with Lovenox bridging sent to his pharmacy. This will need quick follow up with his PCP for adjustment of coumadin. For his afib with RVR, he returned into sinus rhythm after initiation of beta carmel therapy. This will be continued with metoprolol 25 mg BID as an outpatient. Troponins were negative and chest pain did not recur. Given his DVT and new afib, CTA was performed and was negative for PE. Outpatient follow up with primary care and possible referral to cardiology is recommended as an outpatient. Exam Vital Signs (past 8 hours): - 02/23/22 04:00 02/23/22 03:00 02/23/22 06:42 Temperature 97.9 F Pulse Rate 56 L Respiratory Rate 15 Blood Pressure 96/60 94/68 Pulse Oximetry 95 95 Oxygen Delivery Method Room Air Oxygen Flow Rate 02/23/22 08:20 02/23/22 09:04 Temperature 98.0 F Pulse Rate 61 61 Respiratory Rate 18 Blood Pressure 120/73 120/73 Pulse Oximetry 95 Oxygen Delivery Method Oxygen Flow Rate 0 Oxygen Delivery Method Room Air Oxygen Flow Rate 0 Narrative Exam Narrative: General:? Patient is well developed and well nourished, in no distress at this time. HEENT:? Normocephalic, atraumatic, extraocular muscles intact, oral pharynx is clear and mucous membranes are moist. Neck: supple and symmetric, trachea is midline, no cervical adenopathy. Negative for JVD Chest:? Normal AP diameter and contour without kyphoscoliosis, no tachypnea, equal chest rise bilaterally. Lungs:? CTA b/l no wheezing rhonchi or rales. Cardio:?RRR no m/r/g. Abdomen: S NT ND. Musculoskeletal:? Muscle strength and tone are equal within normal limits, no deformity. Extremities: No edema or joint effusions. No cyanosis or clubbing. LLE with skin darkening and chronic venous changes, slightly larger than right. Skin:? Pale,? Warm to touch,dry and intact without rashes, ulcerations or petechiae.? Neuro:? Alert and orientated x3,? sensation to touch intact in all extremities, no gross deficits noted of cranial nerves. Psych:? Patient has a well-kept appearance, appropriate affect, mental status attitude thought context and judgment are appropriate for age. Objective Labs Result Diagrams: 02/23/22 05:44 02/23/22 05:44 Labs: Laboratory Results - last 24 hr 1002/22/22 02/22/22 12:15 12:24 12:24 WBC 8.6 RBC 5.17 Hgb 16.9 Hct 48.6 MCV 94.0 MCH 32.8 MCHC 34.8 RDW 12.7 Plt Count 230 Neut % (Auto) 62.9 Lymph % (Auto) 27.3 [place] % (Auto) 8.7 Eos % (Auto) 0.6 L Baso % (Auto) 0.5 Neut # (Auto) 5400 Lymph # (Auto) 2400 [place] # (Auto) 700 Eos # (Auto) 100 Baso # (Auto) 0 D-Dimer 633 H Sodium 141 Potassium 3.6 Chloride 102 Carbon Dioxide 25 BUN 13 Creatinine 0.99 Estimated GFR > 60 BUN/Creatinine Ratio 13.1 Glucose 106 Hemoglobin A1c Calcium 9.5 Magnesium 2.1 Total Bilirubin 1.1 AST 24 ALT 20 Alkaline Phosphatase 65 Total Creatine Kinase 50 L CK-MB (CK-2) TNP CK-MB (CK-2) Rel Index TNP Troponin I < 0.012 NT-Pro-B Natriuret Pep Total Protein 8.2 Albumin 4.5 Globulin 3.7 Albumin/Globulin Ratio 1.2 Triglycerides Cholesterol LDL Cholesterol, Calc HDL Cholesterol Lipase 41 TSH SARS-CoV-2 (PCR) 02/22/22 02/22/22 02/22/22 12:24 12:24 12:43 WBC RBC Hgb Hct MCV MCH MCHC RDW Plt Count Neut % (Auto) Lymph % (Auto) [place] % (Auto) Eos % (Auto) Baso % (Auto) Neut # (Auto) Lymph # (Auto) [place] # (Auto) Eos # (Auto) Baso # (Auto) D-Dimer Sodium Potassium Chloride Carbon Dioxide BUN Creatinine Estimated GFR BUN/Creatinine Ratio Glucose Hemoglobin A1c Calcium Magnesium Total Bilirubin AST ALT Alkaline Phosphatase Total Creatine Kinase CK-MB (CK-2) CK-MB (CK-2) Rel Index Troponin I NT-Pro-B Natriuret Pep 279 H Total Protein Albumin Globulin Albumin/Globulin Ratio Triglycerides Cholesterol LDL Cholesterol, Calc HDL Cholesterol Lipase TSH 3.51 SARS-CoV-2 (PCR) Negative 02/22/22 02/22/22 02/23/22 14:30 20:07 05:44 WBC 6.6 RBC 4.86 Hgb 15.7 Hct 45.6 MCV 93.8 MCH 32.4 MCHC 34.5 RDW 12.7 Plt Count 217 Neut % (Auto) 58.5 Lymph % (Auto) 31.1 [place] % (Auto) 8.8 Eos % (Auto) 1.1 L Baso % (Auto) 0.5 Neut # (Auto) 3900 Lymph # (Auto) 2100 [place] # (Auto) 600 Eos # (Auto) 100 Baso # (Auto) 0 D-Dimer Sodium Potassium Chloride Carbon Dioxide BUN Creatinine Estimated GFR BUN/Creatinine Ratio Glucose Hemoglobin A1c Calcium Magnesium Total Bilirubin AST ALT Alkaline Phosphatase Total Creatine Kinase CK-MB (CK-2) CK-MB (CK-2) Rel Index Troponin I < 0.012 < 0.012 NT-Pro-B Natriuret Pep Total Protein Albumin Globulin Albumin/Globulin Ratio Triglycerides Cholesterol LDL Cholesterol, Calc HDL Cholesterol Lipase TSH SARS-CoV-2 (PCR) 02/23/22 02/23/22 05:44 05:44 WBC RBC Hgb Hct MCV MCH MCHC RDW Plt Count Neut % (Auto) Lymph % (Auto) [place] % (Auto) Eos % (Auto) Baso % (Auto) Neut # (Auto) Lymph # (Auto) [place] # (Auto) Eos # (Auto) Baso # (Auto) D-Dimer Sodium 139 Potassium 4.2 Chloride 103 Carbon Dioxide 29 BUN 17 Creatinine 1.12 Estimated GFR > 60 BUN/Creatinine Ratio 15.2 Glucose 108 Hemoglobin A1c 5.5 Calcium 9.0 Magnesium 2.1 Total Bilirubin AST ALT Alkaline Phosphatase Total Creatine Kinase CK-MB (CK-2) CK-MB (CK-2) Rel Index Troponin I NT-Pro-B Natriuret Pep Total Protein Albumin Globulin Albumin/Globulin Ratio Triglycerides 56 Cholesterol 169 LDL Cholesterol, Calc 116 H HDL Cholesterol 42 Lipase TSH SARS-CoV-2 (PCR) [facility] Medical History Acne (~1984) Cataracts, bilateral (~2019) Hx of malignant neoplasm of prostate Onychomycosis of great toe Screening for hyperlipidemia Seborrheic keratoses Wears glasses Surgical History Anesthesia History of cataract removal with insertion of prosthetic lens History of surgery (~04/24/18) Family History Father Cancer Mother History of emphysema Brother History of heart disease Social History household members: spouse Smoking Status: Former smoker Tobacco: How many years used: 10 quit status: has quit before second hand exposure: Yes (childhood ) alcohol intake: current substance use type: does not use Discharge Plan Discharge Plan Patient Disposition: Home Provider Discharge Comment: You were admitted to the hospital with a new diagnosis of atrial fibrillation. You were found to have a blood clot in your left leg, you elected for Coumadin which needs prompt PCP follow up. In the short term take injections twice daily until coumadin is acting in your system. Discharge orders & Medications Prescriptions: New metoprolol succinate 25 mg Tablet Extended Release 24 Hr 25 mg PO BID 30 Days Qty: 60 0RF enoxaparin [Lovenox] 80 mg/0.8 mL syringe 80 mg SUBCUT Q12H 5 Days Qty: 8 0RF warfarin 5 mg tablet 5 mg PO DAILY 30 Days Qty: 30 0RF Continued fluocinonide 0.05 % ointment 1 applic topical BID-QID PRN (Reason: dry skin) Qty: 60 3RF Follow up/Referrals: Keo Roach DO [Primary Care Provider] - 02/24/22 12:00 pm (APPT:02/24 @ [address] ROACH-ARRIVE 15 MINUTES PRIOR TO YOUR SCHEDULED APPOINTMENT TIME ) Diet/Activity/Treatments Diet: Diet as Tolerated Activity: As tolerated Visit Report/Discharge Packet Instructions: DI for Deep Vein Thrombosis, DI for Atrial Fibrillation, Warfarin Discharge Data Primary Care Provider: Keo Roach Attending Provider: Tenzin Ramos
[2022-02-23] MEDS: WARFARIN 5 MG TABLET PO (09:14)
[2022-02-23] MEDS: ENOXAPARIN 100 MG/ML SYRINGE 85 MG SUBCUT (09:23)
--- NOTE | 2022-02-23 11:24 | PC.NURSE ---
Pt A&OX3, VSS, afebrile on RA. He remains NSR on telemetry. Echo completed at bedside.MD at bedside this a.m. celaring patient for discharge and reviewing diagnosis of DVT and new onset afib with anticoagulation plan as well as follow up with PCP. He verbalizes understanding of discharge medications, side effects to watch for as well as follow up and asks appropriate questions. He is escorted to lobby for discharge home with with all of his belongings this a.m. at approximately 1101 a.m.
== END 2022-02-23 11:01 | disposition home or self-care (01) ==
LOC: ED 14:38 → AC 15:21
PROVIDERS: Admitting Provider Internal Medicine; Emergency Provider Emergency Medicine; PCP Family Medicine; Referring Provider Emergency Medicine; Visit Provider Internal Medicine
DX: I48.0 Paroxysmal atrial fibrillation (principal); I82.402 Acute embolism and thrombosis of unspecified deep veins of left lower extremity; Z85.46 Personal history of malignant neoplasm of prostate; Z20.822 Contact with and (suspected) exposure to COVID-19
CPT/HCPCS: 36415; 71045; 71275; 80048; 80053; 80061; 82550; 83036; 83690; 83735; 83880; 84443; 84484; 85025; 85379; 87635; 93005; 93010; 93306; 93970; 96361; 96372; 96374; 99284; 99291; C9803; G0378; J1650

== ENCOUNTER → 2022-03-02 07:01 | Outpatient (CLI) | payer OTHER, SELFPAY ==
[2022-02-22 15:40] VITALS: BMI 26.4
[2022-03-02 08:16] LABS: INR 2.8 (0.9-1.3); Prothrombin Time 32.5 SECONDS (10.1-12.7)
== END ==
PROVIDERS: PCP Family Medicine; Referring Provider Family Medicine; Visit Provider Family Medicine
DX: I48.91 Unspecified atrial fibrillation (principal); Z51.81 Encounter for therapeutic drug level monitoring; Z79.01 Long term (current) use of anticoagulants
CPT/HCPCS: 36415; 85610

== ENCOUNTER → 2022-03-10 10:22 | Outpatient (CLI) | payer OTHER, SELFPAY ==
[2022-02-22 15:40] VITALS: BMI 26.4
[2022-03-10 12:48] LABS: Add Manual Diff / Slide Review NO; Basophils Absolute Auto 0 /uL (0-100); Basophils Percent Auto 0.5 % (0-2); Eosinophils Absolute Auto 100 /uL (0-450); Eosinophils Percent Auto 1.9 % (2-4); Hematocrit 44.2 % (41-53); Hemoglobin 15.1 g/dL (13.5-17.5); Lymphocytes Absolute Auto 2100 /uL (1100-4500); Lymphocytes Percent Auto 36.1 % (25-40); Mean Corpuscular HGB Conc 34.3 % (30-36); Mean Corpuscular Hemoglobin 32.2 PG (26-34); Mean Corpuscular Volume 93.9 fL (80-100); Monocytes Absolute Auto 500 /uL (0-900); Monocytes Percent Auto 8.8 % (3-14); Neutrophils Absolute Auto 3100 /uL (1500-7000); Neutrophils Percent Auto 52.7 % (50-75); Platelet Count 244 X10^3/uL (150-400); Red Cell Distribution Width 12.9 % (11.6-14.8); White Blood Cell Count 5.9 X10^3/uL (4.5-11.0)
[2022-03-10 13:13] LABS: Alanine Aminotransferase 37 IU/L (<50); Albumin Globulin Ratio 1.4 (1.0-2.8); Alkaline Phosphatase 60 U/L (38-126); Aspartate Aminotransferase 21 IU/L (17-59); BUN Creatinine Ratio 15.6 (6-22); Bilirubin Total 0.4 mg/dL (0.2-1.3); Blood Urea Nitrogen 15 mg/dL (9-20); Calcium 9.4 mg/dL (8.4-10.2); Carbon Dioxide 28 mmol/L (22-32); Chloride 103 mmol/L (98-107); Cholesterol 204 mg/dL (140-199); Estimated Glomerular Filt Rate > 60 mL/min (>60); Globulin 2.9 g/dL (1.7-4.1); Glucose 79 mg/dL (80-110); HDL Cholesterol 42 mg/dL (40-60); HEMOLYSIS < 15 (0-50); LDL Cholesterol Calculated 123 mg/dL (<100); Potassium 4.4 mmol/L (3.4-5.1); Sodium 140 mmol/L (137-145); Total Protein 6.9 g/dL (6.3-8.2); Triglycerides 194 mg/dL (35-150)
== END ==
PROVIDERS: PCP Family Medicine; Referring Provider Family Medicine; Visit Provider Family Medicine
DX: Z85.46 Personal history of malignant neoplasm of prostate (principal); Z13.220 Encounter for screening for lipoid disorders; Z12.5 Encounter for screening for malignant neoplasm of prostate
CPT/HCPCS: 36415; 80053; 80061; 85025; G0103

== ENCOUNTER → 2022-03-31 09:30 | Outpatient (CLI) | payer OTHER, SELFPAY ==
[2022-02-22 15:40] VITALS: BMI 26.4
[2022-03-31 10:35] LABS: INR 3.2 (0.9-1.3); Prothrombin Time 36.9 SECONDS (10.1-12.7)
== END ==
PROVIDERS: PCP Family Medicine; Referring Provider Family Medicine; Visit Provider Family Medicine
DX: I48.91 Unspecified atrial fibrillation (principal)
CPT/HCPCS: 36415; 85610

== ENCOUNTER → 2022-04-04 13:41 | Outpatient (CLI) | payer OTHER, SELFPAY ==
[2022-02-22 15:40] VITALS: BMI 26.4
[2022-04-05 13:34] LABS: Fecal Immunochemical Test Negative (Negative)
== END ==
PROVIDERS: PCP Family Medicine; Referring Provider Family Medicine; Visit Provider Family Medicine
DX: Z12.11 Encounter for screening for malignant neoplasm of colon (principal)
CPT/HCPCS: 82274

== ENCOUNTER → 2022-04-11 13:37 | Outpatient (CLI) | payer OTHER, SELFPAY ==
[2022-02-22 15:40] VITALS: BMI 26.4
[2022-04-11 14:24] LABS: Prothrombin Time 82.3 SECONDS (10.1-12.7)
== END ==
PROVIDERS: PCP Family Medicine; Referring Provider Family Medicine; Visit Provider Family Medicine
DX: Z51.81 Encounter for therapeutic drug level monitoring (principal); Z86.718 Personal history of other venous thrombosis and embolism; Z79.01 Long term (current) use of anticoagulants
CPT/HCPCS: 36415; 85610

== ENCOUNTER → 2022-04-15 08:44 | Outpatient (CLI) | payer OTHER, SELFPAY ==
[2022-02-22 15:40] VITALS: BMI 26.4
[2022-04-15 10:35] LABS: INR 1.7 (0.9-1.3)
== END ==
PROVIDERS: PCP Family Medicine; Referring Provider Family Medicine; Visit Provider Family Medicine
DX: I48.0 Paroxysmal atrial fibrillation (principal); Z51.81 Encounter for therapeutic drug level monitoring; Z79.01 Long term (current) use of anticoagulants; Z86.718 Personal history of other venous thrombosis and embolism
CPT/HCPCS: 36415; 85610

== ENCOUNTER → 2022-04-21 09:54 | Outpatient (CLI) | payer OTHER, SELFPAY ==
[2022-02-22 15:40] VITALS: BMI 26.4
[2022-04-21 11:22] LABS: INR 6.8 (0.9-1.3)
== END ==
PROVIDERS: PCP Family Medicine; Referring Provider Family Medicine; Visit Provider Family Medicine
DX: Z79.01 Long term (current) use of anticoagulants (principal); Z51.81 Encounter for therapeutic drug level monitoring
CPT/HCPCS: 36415; 85610

== ENCOUNTER → 2022-04-29 09:44 | Outpatient (CLI) | payer OTHER, SELFPAY ==
[2022-02-22 15:40] VITALS: BMI 26.4
[2022-04-29 12:21] LABS: INR 2.1 (0.9-1.3)
== END ==
PROVIDERS: PCP Family Medicine; Referring Provider Family Medicine; Visit Provider Family Medicine
DX: Z79.01 Long term (current) use of anticoagulants (principal); I48.0 Paroxysmal atrial fibrillation; Z51.81 Encounter for therapeutic drug level monitoring; Z86.718 Personal history of other venous thrombosis and embolism
CPT/HCPCS: 36415; 85610

== ENCOUNTER → 2022-05-07 10:37 | Outpatient (CLI) | payer OTHER, SELFPAY ==
[2022-02-22 15:40] VITALS: BMI 26.4
[2022-05-07 11:47] LABS: INR 1.4 (0.9-1.3); Prothrombin Time 15.7 SECONDS (10.1-12.7)
== END ==
PROVIDERS: PCP Family Medicine; Referring Provider Family Medicine; Visit Provider Family Medicine
DX: I48.0 Paroxysmal atrial fibrillation (principal); Z79.01 Long term (current) use of anticoagulants; Z51.81 Encounter for therapeutic drug level monitoring; Z86.718 Personal history of other venous thrombosis and embolism
CPT/HCPCS: 36415; 85610

== ENCOUNTER → 2022-05-14 09:30 | Outpatient (CLI) | payer OTHER, SELFPAY ==
[2022-02-22 15:40] VITALS: BMI 26.4
[2022-05-14 09:55] LABS: INR 1.7 (0.9-1.3); Prothrombin Time 19.7 SECONDS (10.1-12.7)
== END ==
PROVIDERS: PCP Family Medicine; Referring Provider Family Medicine; Visit Provider Family Medicine
DX: I48.0 Paroxysmal atrial fibrillation (principal); Z86.718 Personal history of other venous thrombosis and embolism; Z51.81 Encounter for therapeutic drug level monitoring; Z79.01 Long term (current) use of anticoagulants
CPT/HCPCS: 36415; 85610

== ENCOUNTER → 2022-05-28 07:57 | Outpatient (CLI) | payer OTHER, SELFPAY ==
[2022-02-22 15:40] VITALS: BMI 26.4
[2022-05-28 09:01] LABS: INR 4.5 (0.9-1.3); Prothrombin Time 52.7 SECONDS (10.1-12.7)
== END ==
PROVIDERS: PCP Family Medicine; Referring Provider Family Medicine; Visit Provider Family Medicine
DX: I48.0 Paroxysmal atrial fibrillation (principal); Z51.81 Encounter for therapeutic drug level monitoring; Z79.01 Long term (current) use of anticoagulants; Z86.718 Personal history of other venous thrombosis and embolism
CPT/HCPCS: 36415; 85610

== ENCOUNTER → 2022-06-17 13:37 | Outpatient (CLI) | payer OTHER, SELFPAY ==
[2022-02-22 15:40] VITALS: BMI 26.4
[2022-06-17 15:25] LABS: INR 2.1 (0.9-1.3); Prothrombin Time 23.8 SECONDS (10.1-12.7)
== END ==
PROVIDERS: PCP Family Medicine; Referring Provider Family Medicine; Visit Provider Family Medicine
DX: I48.0 Paroxysmal atrial fibrillation (principal); Z86.718 Personal history of other venous thrombosis and embolism
CPT/HCPCS: 36415; 85610

== ENCOUNTER → 2022-06-27 07:01 | Outpatient (CLI) | payer OTHER, SELFPAY ==
[2022-02-22 15:40] VITALS: BMI 26.4
[2022-06-27 08:43] LABS: INR 1.4 (0.9-1.3); Prothrombin Time 15.7 SECONDS (10.1-12.7)
== END ==
PROVIDERS: PCP Family Medicine; Referring Provider Family Medicine; Visit Provider Family Medicine
DX: I48.0 Paroxysmal atrial fibrillation (principal); Z86.718 Personal history of other venous thrombosis and embolism
CPT/HCPCS: 36415; 85610

== ENCOUNTER → 2022-09-02 09:17 | Outpatient (CLI) | payer OTHER, SELFPAY ==
[2022-02-22 15:40] VITALS: BMI 26.4
[2022-09-02 09:53] LABS: INR 3.4 (0.9-1.3); Prothrombin Time 39.8 SECONDS (10.1-12.7)
== END ==
PROVIDERS: PCP Family Medicine; Referring Provider Family Medicine; Visit Provider Family Medicine
DX: I48.0 Paroxysmal atrial fibrillation (principal); Z51.81 Encounter for therapeutic drug level monitoring; Z79.01 Long term (current) use of anticoagulants
CPT/HCPCS: 36415; 85610

== ENCOUNTER → 2022-09-07 07:59 | Outpatient (CLI) | payer OTHER, SELFPAY ==
[2022-02-22 15:40] VITALS: BMI 26.4
--- NOTE | 2022-09-07 21:28 | DI.NM.S_ITS ---
DATE OF SERVICE: 09/07/2022 PROCEDURE: Exercise perfusion study. INDICATIONS: Paroxysmal AFib. RADIOPHARMACEUTICAL: 25.5 millicurie technetium-99m Myoview IV was injected at stress and 10.7 millicurie technetium-99m Myoview IV was injected at rest. CARDIAC STRESS: The patient underwent exercise perfusion study under the supervision of an attending staff. The patient walked on Clemente protocol for 8 minutes and achieved maximum heart rate of 146, which was 97% of target heart rate. Resting blood pressure 120/80 and peak blood pressure 162/90 mmHg. ASHLEY - 14%. Achieved 10.1 METS of workload. Baseline rhythm was sinus. During stress, no convincing ischemic changes seen. Occasional isolated PVCs without any complex ventricular arrhythmias or AFib. No chest pain or anginal symptoms. The patient felt dyspnea and fatigue. RAW DATA: There is increased subdiaphragmatic activity. GATED STUDY: Stress LV ejection fraction 73% without any obvious wall motion abnormalities. Resting end-diastolic volume 87 mL. TID ratio 0.81, which is within normal limits. Lung/heart ratio 0.25, which is within normal limits. MYOCARDIAL PERFUSION SCAN: Stress supine, resting supine and stress prone images were compared to each other. Stress supine and resting supine images revealed moderate size, mild to moderately decreased perfusion of inferior wall as well as inferoapex which got completely resolved during stress prone images suggestive of diaphragmatic tissue attenuation artifact. No convincing ischemia or infarction pattern. CONCLUSION: This is a normal myocardial perfusion study with evidence of diaphragmatic tissue attenuation artifact, which got resolved during stress prone images. Good exercise tolerance. ASHLEY -14%. Normal hemodynamic response. No anginal symptoms. No obvious ischemic electrocardiographic changes. No complex arrhythmias. Preserved left ventricular function. Overall, low-risk myocardial perfusion scan. Boaz Naranjo - SHELDON/rut/clary doc#: [id number]/job#: [id number] dd: 09/07/2022 17:09:00 dt: 09/07/2022 21:19:00 DICTATING MD/COPIES TO: Jasmine Apple MD COPIES MNE: LEATHA;
== END ==
PROVIDERS: PCP Family Medicine; Referring Provider Internal Medicine Cardiovascular Disease; Visit Provider Internal Medicine Cardiovascular Disease
DX: I48.0 Paroxysmal atrial fibrillation (principal)
CPT/HCPCS: 78452; 93017; A9502

== ENCOUNTER → 2022-09-13 14:08 | Outpatient (CLI) | payer OTHER, SELFPAY ==
[2022-02-22 15:40] VITALS: BMI 26.4
[2022-09-13 16:10] LABS: INR 1.7 (0.9-1.3); Prothrombin Time 19.8 SECONDS (10.1-12.7)
== END ==
PROVIDERS: PCP Family Medicine; Referring Provider Family Medicine; Visit Provider Family Medicine
DX: I82.409 Acute embolism and thrombosis of unspecified deep veins of unspecified lower extremity (principal)
CPT/HCPCS: 36415; 85610

== ENCOUNTER → 2022-10-04 14:15 | Outpatient (CLI) | payer OTHER, SELFPAY ==
[2022-02-22 15:40] VITALS: BMI 26.4
[2022-10-04 16:02] LABS: INR 1.9 (0.9-1.3); Prothrombin Time 21.5 SECONDS (10.1-12.7)
== END ==
PROVIDERS: PCP Family Medicine; Referring Provider Family Medicine; Visit Provider Family Medicine
DX: I48.91 Unspecified atrial fibrillation (principal)
CPT/HCPCS: 36415; 85610

== ENCOUNTER → 2022-10-27 09:03 | Outpatient (CLI) | payer OTHER, SELFPAY ==
[2022-02-22 15:40] VITALS: BMI 26.4
[2022-10-27 09:57] LABS: INR 1.7 (0.9-1.3); Prothrombin Time 19.1 SECONDS (10.1-12.7)
== END ==
PROVIDERS: PCP Family Medicine; Referring Provider Family Medicine; Visit Provider Family Medicine
DX: I82.409 Acute embolism and thrombosis of unspecified deep veins of unspecified lower extremity (principal)
CPT/HCPCS: 36415; 85610

== ENCOUNTER → 2022-11-07 12:59 | Outpatient (CLI) | payer OTHER, SELFPAY ==
[2022-02-22 15:40] VITALS: BMI 26.4
[2022-11-07 13:56] LABS: INR 2.3 (0.9-1.3); Prothrombin Time 27.1 SECONDS (10.1-12.7)
== END ==
PROVIDERS: PCP Family Medicine; Referring Provider Family Medicine; Visit Provider Family Medicine
DX: I48.0 Paroxysmal atrial fibrillation (principal); Z51.81 Encounter for therapeutic drug level monitoring; Z79.01 Long term (current) use of anticoagulants
CPT/HCPCS: 36415; 85610

== ENCOUNTER → 2022-12-06 07:53 | Outpatient (CLI) | payer OTHER, SELFPAY ==
[2022-02-22 15:40] VITALS: BMI 26.4
--- NOTE | 2022-12-06 | DI.US.S_ITS ---
PROCEDURE: US PERIPH VENOUS LOW EXTREM LT INDICATIONS: ACUTE THROMBOSIS TECHNIQUE: Real-time imaging, as well as color and pulse Doppler interrogation, were performed of the lower extremity deep veins from the inguinal ligament to the popliteal fossa. COMPARISON: None. FINDINGS: A duplicated left superficial femoral vein can be seen. Thrombosis is seen within the distal aspect of 1 of the duplicated superficial femoral veins. No other findings of deep venous thrombosis can be seen. IMPRESSION: Duplicated femoral vein system, with duplication of the superficial femoral veins, with deep venous thrombosis seen within 1 of the duplicated branches. Dictated by: Jimmie Barcenas M.D. on 12/06/2022 at 9:32 Approved by: Jimmie Barcenas M.D. on 12/06/2022 at 9:34
== END ==
PROVIDERS: PCP Family Medicine; Referring Provider Internal Medicine Cardiovascular Disease; Visit Provider Internal Medicine Cardiovascular Disease
DX: Q27.8 Other specified congenital malformations of peripheral vascular system (principal); I82.412 Acute embolism and thrombosis of left femoral vein
CPT/HCPCS: 93971

== ENCOUNTER → 2023-02-08 13:02 | Outpatient (CLI) | payer OTHER, SELFPAY ==
[2022-02-22 15:40] VITALS: BMI 26.4
[2023-02-08 14:34] LABS: INR 2.6 (0.9-1.3); Prothrombin Time 29.9 SECONDS (10.1-12.7)
== END ==
PROVIDERS: PCP Family Medicine; Referring Provider Physician Assistant; Visit Provider Physician Assistant
DX: I48.0 Paroxysmal atrial fibrillation (principal); Z51.81 Encounter for therapeutic drug level monitoring; Z79.01 Long term (current) use of anticoagulants
CPT/HCPCS: 36415; 85610

== ENCOUNTER → 2023-03-21 08:38 | Outpatient (CLI) | payer OTHER, SELFPAY ==
[2022-02-22 15:40] VITALS: BMI 26.4
[2023-03-21 11:00] LABS: INR 3.1 (0.9-1.3)
== END ==
PROVIDERS: PCP Family Medicine; Referring Provider Family Medicine; Visit Provider Family Medicine
DX: Z86.718 Personal history of other venous thrombosis and embolism (principal); I48.0 Paroxysmal atrial fibrillation; Z51.81 Encounter for therapeutic drug level monitoring; Z79.01 Long term (current) use of anticoagulants
CPT/HCPCS: 36415; 85610

== ENCOUNTER → 2023-04-04 09:33 | Outpatient (CLI) | payer OTHER, SELFPAY ==
[2022-02-22 15:40] VITALS: BMI 26.4
[2023-04-04 10:19] LABS: Add Manual Diff / Slide Review NO; Basophils Absolute Auto 0 /uL (0-100); Basophils Percent Auto 0.8 % (0-2); Eosinophils Absolute Auto 200 /uL (0-450); Hematocrit 45.1 % (41-53); Hemoglobin 15.5 g/dL (13.5-17.5); Lymphocytes Absolute Auto 1600 /uL (1100-4500); Lymphocytes Percent Auto 26.5 % (25-40); Mean Corpuscular HGB Conc 34.5 % (30-36); Mean Corpuscular Hemoglobin 32.3 PG (26-34); Mean Corpuscular Volume 93.8 fL (80-100); Monocytes Absolute Auto 500 /uL (0-900); Monocytes Percent Auto 8.1 % (3-14); Neutrophils Absolute Auto 3700 /uL (1500-7000); Neutrophils Percent Auto 61.6 % (50-75); Platelet Count 234 X10^3/uL (150-400); Red Blood Cell Count 4.81 X10^6/uL (4.5-5.9); Red Cell Distribution Width 12.9 % (11.6-14.8)
[2023-04-04 10:44] LABS: Alanine Aminotransferase 25 IU/L (<50); Albumin 4.2 g/dL (3.5-5.0); Albumin Globulin Ratio 1.4 (1.0-2.8); Alkaline Phosphatase 57 U/L (38-126); Aspartate Aminotransferase 25 IU/L (17-59); BUN Creatinine Ratio 15.5 (6-22); Bilirubin Total 0.9 mg/dL (0.2-1.3); Blood Urea Nitrogen 15 mg/dL (9-20); Calcium 9.4 mg/dL (8.4-10.2); Carbon Dioxide 29 mmol/L (22-32); Chloride 102 mmol/L (98-107); Cholesterol 204 mg/dL (140-199); Estimated Glomerular Filt Rate > 60 mL/min (>60); Glucose 111 mg/dL (80-110); HDL Cholesterol 37 mg/dL (40-60); HEMOLYSIS < 15 (0-50); LDL Cholesterol Calculated 142 mg/dL (<100); Potassium 4.5 mmol/L (3.4-5.1); Sodium 137 mmol/L (137-145); Total Protein 7.2 g/dL (6.3-8.2); Triglycerides 124 mg/dL (35-150)
[2023-04-04 11:12] LABS: Prostate Specific Antigen < 0.064 ng/mL (0.10-4.00)
== END ==
PROVIDERS: PCP Family Medicine; Referring Provider Family Medicine; Visit Provider Family Medicine
DX: E78.5 Hyperlipidemia, unspecified (principal); Z85.46 Personal history of malignant neoplasm of prostate; I48.91 Unspecified atrial fibrillation
CPT/HCPCS: 36415; 80053; 80061; 84153; 85025

== ENCOUNTER → 2023-04-07 11:01 | Outpatient (CLI) | payer OTHER, SELFPAY ==
[2022-02-22 15:40] VITALS: BMI 26.4
[2023-04-10 15:03] LABS: Fecal Immunochemical Test Negative (Negative)
== END ==
PROVIDERS: PCP Family Medicine; Referring Provider Family Medicine; Visit Provider Family Medicine
DX: I48.91 Unspecified atrial fibrillation (principal)
CPT/HCPCS: 82274

== ENCOUNTER → 2023-05-16 12:59 | Outpatient (CLI) | payer OTHER, SELFPAY ==
[2022-02-22 15:40] VITALS: BMI 26.4
[2023-05-16 14:24] LABS: Add Manual Diff / Slide Review NO; Basophils Absolute Auto 0 /uL (0-100); Basophils Percent Auto 0.6 % (0-2); Eosinophils Absolute Auto 100 /uL (0-450); Eosinophils Percent Auto 1.2 % (2-4); Hematocrit 45.6 % (41-53); Hemoglobin 15.6 g/dL (13.5-17.5); Lymphocytes Absolute Auto 2100 /uL (1100-4500); Mean Corpuscular HGB Conc 34.2 % (30-36); Mean Corpuscular Hemoglobin 32.1 PG (26-34); Mean Corpuscular Volume 93.7 fL (80-100); Monocytes Absolute Auto 600 /uL (0-900); Monocytes Percent Auto 7.1 % (3-14); Neutrophils Absolute Auto 5200 /uL (1500-7000); Neutrophils Percent Auto 65.1 % (50-75); Platelet Count 220 X10^3/uL (150-400); Red Blood Cell Count 4.86 X10^6/uL (4.5-5.9); Red Cell Distribution Width 12.9 % (11.6-14.8)
[2023-05-16 14:32] LABS: INR 1.2 (0.9-1.3); Prothrombin Time 13.6 SECONDS (9.4-12.5)
[2023-05-16 14:41] LABS: Alanine Aminotransferase 29 IU/L (<50); Albumin 4.3 g/dL (3.5-5.0); Albumin Globulin Ratio 1.4 (1.0-2.8); Alkaline Phosphatase 55 U/L (38-126); BUN Creatinine Ratio 15.2 (6-22); Bilirubin Total 0.9 mg/dL (0.2-1.3); Blood Urea Nitrogen 16 mg/dL (9-20); Calcium 9.9 mg/dL (8.4-10.2); Carbon Dioxide 29 mmol/L (22-32); Chloride 101 mmol/L (98-107); Cholesterol 204 mg/dL (140-199); Estimated Glomerular Filt Rate > 60 mL/min (>60); Glucose 94 mg/dL (80-110); HDL Cholesterol 49 mg/dL (40-60); HEMOLYSIS < 15 (0-50); LDL Cholesterol Calculated 136 mg/dL (<100); Potassium 4.7 mmol/L (3.4-5.1); Sodium 138 mmol/L (137-145); Total Protein 7.3 g/dL (6.3-8.2); Triglycerides 93 mg/dL (35-150)
[2023-05-16 15:09] LABS: Prostate Specific Antigen < 0.064 ng/mL (0.10-4.00)
[2023-05-19 16:02] LABS: Aspartate Aminotransferase 27 IU/L (17-59)
== END ==
LOC: LAB 13:00
PROVIDERS: PCP Family Medicine; Referring Provider Family Medicine; Visit Provider Family Medicine
DX: E78.5 Hyperlipidemia, unspecified (principal); I48.91 Unspecified atrial fibrillation; Z85.46 Personal history of malignant neoplasm of prostate; I82.409 Acute embolism and thrombosis of unspecified deep veins of unspecified lower extremity
CPT/HCPCS: 36415; 80053; 80061; 84153; 85025; 85610

== ENCOUNTER 2023-11-27 05:48 | Emergency (ER) | payer OTHER, SELFPAY ==
[2022-02-22 15:40] VITALS: BMI 26.4
[2023-11-27 06:05] VITALS: BP 120/60; PULSE 51; RESP 16; TEMP 36.4; O2SAT 100; BMI 25.7
--- NOTE | 2023-11-27 06:08 | DI.CT.S_ITS ---
PROCEDURE: CT ABDOMEN PELVIS WO CON INDICATIONS: R FLANK PAIN, POSS STONE TECHNIQUE: Axial sections were acquired from the lung bases to the pubic symphysis. Coronal and sagittal reformats were performed. For radiation dose reduction, the following was used: automated exposure control, adjustment of mA and/or kV according to patient size. COMPARISON: None. FINDINGS: Image quality: Diagnostic. Lower Chest: No significant findings. URINARY: Right Kidney: Minimal right hydronephrosis. No significant perinephric inflammation. No retained intrarenal calculi or contour deforming mass. Right Ureter: Mild right hydroureter. No retained ureteral calculi. Left Kidney: No stones or hydronephrosis. Left Ureter: No hydroureter, ureteral calculus, or periureteric inflammation. Bladder: 2 mm calcification within the urinary bladder just beyond the right ureterovesicular junction. Urinary bladder is otherwise decompressed. No suspicious wall thickening. ABDOMEN: Liver: Mild hepatic steatosis and small hypodensity in segment eight, presumably cyst or benign hemangioma. Gallbladder: No wall thickening or calcified stones. Biliary ducts: No biliary dilation. Pancreas: No ductal dilation. Spleen: Size is within normal limits. Adrenal Glands: No adrenal nodules. Stomach and Bowel: Stomach and small bowel loops are normal caliber. Moderate sigmoid diverticulosis. No acute inflammatory change. Normal appendix. Peritoneum: No abnormal intraperitoneal fluid. No free air. Ventral Wall: Small, wide necked fat containing umbilical hernia. Abdominal Nodes: No enlarged retroperitoneal or mesenteric lymph nodes. Vessels: The abdominal aorta, IVC, and portal vein are of normal caliber. PELVIS: Pelvic Organs: Normal size prostate with several brachytherapy seeds in place. Pelvic Nodes: Unremarkable. Miscellaneous: No inguinal hernias are seen. Bones: No suspicious bone lesions. Partial right SI joint ankylosis. IMPRESSION: Recently passed punctate stone, now within the urinary bladder just beyond the right UVJ. There is minor residual hydroureteronephrosis. No other retained intrarenal calculi. Final interpretation is concordant with preliminary report. Dictated by: Berenice Caruso M.D. on 11/27/2023 at 8:50 Approved by: Berenice Caruso M.D. on 11/27/2023 at 8:55
[2023-11-27] MEDS: KETOROLAC 30 MG/ML VIAL 15 MG IV (06:12)
[2023-11-27] MEDS: ONDANSETRON 4 MG/2 ML INJ IV (06:15)
[2023-11-27] MEDS: SODIUM CHLORIDE 0.9% 1,000 ML 1000 ML IV (06:16)
--- NOTE | 2023-11-27 06:21 | ED.MALEGU ---
HPI - Male Genitourinary <Tess More MD - Last Filed: 11/27/23 15:25> General Chief complaint: Urogenital-Female Stated complaint: kidney stones pain level 8 Time Seen by Provider: 11/27/23 05:55 History of Present Illness HPI Narrative: 73-year-old male with history of AFib on Pradaxa presents for right-sided flank pain since this morning. Patient states that he woke up like normal. He was drinking a cup of coffee when he felt severe right-sided flank pain that radiated around towards his groin. No medications taken prior to arrival. Patient denies history of kidney stones but thinks that he may have 1 at this time. Up until this morning he has been in his usual state of health. Related Data Previous Rx's Medication Instructions Recorded fluocinonide 0.05 % topical 1 applic topical BID-QID PRN dry 04/02/21 ointment skin #60 grams metoprolol succinate 25 mg 25 mg PO BID #180 tabs 02/10/23 tablet,extended release 24 hr dabigatran etexilate 150 mg capsule 150 mg PO BID #60 caps 06/14/23 hydrocodone 5 mg-acetaminophen 325 1 tab PO Q8H PRN pain #10 tabs 11/27/23 mg tablet ondansetron 4 mg disintegrating 4 mg PO Q6H PRN nausea and 11/27/23 tablet vomiting #10 tabs Allergies Allergy/AdvReac Type Severity Reaction Status Date / Time No Known Drug Allergies Allergy Unverified 04/11/23 13:41 Review of Systems <Tess More MD - Last Filed: 11/27/23 15:25> Review of Systems Narrative: See HPI Patient History <Tess More MD - Last Filed: 11/27/23 15:25> Medical History Hyperlipidemia Hx of deep venous thrombosis Atrial fibrillation Anticoagulation goal of INR 2 to 3 Atrial fibrillation with rapid ventricular response Seborrheic keratoses Onychomycosis of great toe Hx of malignant neoplasm of prostate Wears glasses Acne (~1984) Cataracts, bilateral (~2019) Surgical History Anesthesia History of surgery (~04/24/18) History of cataract removal with insertion of prosthetic lens Family History Father Cancer Mother History of emphysema Brother History of heart disease Social History household members: spouse Smoking Status: Former smoker Tobacco: How many years used: 10 quit status: has quit before second hand exposure: Yes (childhood ) alcohol intake: current substance use type: does not use Smoking Status: Former smoker Substance Use Type: does not use Exam <Tess More MD - Last Filed: 11/27/23 15:25> Initial Vital Signs Initial Vital Signs: Vital Signs Temperature 97.6 F 11/27/23 06:05 Pulse Rate 51 L 11/27/23 06:05 Respiratory Rate 16 11/27/23 06:05 Blood Pressure 120/60 11/27/23 06:05 Pulse Oximetry 100 11/27/23 06:05 Oxygen Delivery Method Room Air 11/27/23 06:05 Const: Awake, alert, tearful, in pain Cardiac: regular rate, regular rhythm RESP: unlabored, clear bilaterally, no wheezing GI: Soft, nontender, nondistended, no rebound, no guarding MSK: Right-sided CVA tenderness, no left-sided CVA tenderness Skin: Warm, Dry, intact, no rashes Neuro: AO x3, CN II-XII grossly intact, moves all extremities <Pete Redi DO - Last Filed: 11/27/23 08:43> Initial Vital Signs Initial Vital Signs: Vital Signs Temperature 97.6 F 11/27/23 06:05 Pulse Rate 51 L 11/27/23 06:05 Respiratory Rate 16 11/27/23 06:05 Blood Pressure 120/60 11/27/23 06:05 Pulse Oximetry 100 11/27/23 06:05 Oxygen Delivery Method Room Air 11/27/23 06:05 Course <Tess More MD - Last Filed: 11/27/23 15:25> Orders Ordered: Discontinued Medications Hydromorphone HCl (Hydromorphone 1 Mg Inj) 1 mg IV NOW ONE Stop: 11/27/23 07:15 Last Admin: 11/27/23 07:19 Dose: 1 mg Documented By: MPO Sodium Chloride (Normal Saline 0.9%) 1,000 mls @ 1,000 mls/hr IV BOLUS ONE Stop: 11/27/23 07:07 Last Infusion: 11/27/23 07:18 Dose: Infused Documented By: Admin: 11/27/23 06:16 Dose: 1,000 mls/hr Documented By: VINOD Ketorolac Tromethamine (Ketorolac 30 Mg/Ml Vial) 15 mg IV NOW ONE Stop: 11/27/23 06:09 Last Admin: 11/27/23 06:12 Dose: 15 mg Documented By: VINOD Ondansetron HCl (Ondansetron 4 Mg/2 Ml Inj) 4 mg IV NOW ONE Stop: 11/27/23 06:09 Last Admin: 11/27/23 06:15 Dose: 4 mg Documented By: VINOD Vital Signs Vital signs: Vital Signs - 8 hr 11/27/23 08:57 Pulse Rate 56 L Respiratory Rate 22 Blood Pressure 118/63 Pulse Oximetry 96 Oxygen Delivery Method Room Air <Pete Reid DO - Last Filed: 11/27/23 08:43> Orders Ordered: Discontinued Medications Hydromorphone HCl (Hydromorphone 1 Mg Inj) 1 mg IV NOW ONE Stop: 11/27/23 07:15 Last Admin: 11/27/23 07:19 Dose: 1 mg Documented By: JOELLEN Sodium Chloride (Normal Saline 0.9%) 1,000 mls @ 1,000 mls/hr IV BOLUS ONE Stop: 11/27/23 07:07 Last Infusion: 11/27/23 07:18 Dose: Infused Documented By: Admin: 11/27/23 06:16 Dose: 1,000 mls/hr Documented By: VINOD Ketorolac Tromethamine (Ketorolac 30 Mg/Ml Vial) 15 mg IV NOW ONE Stop: 11/27/23 06:09 Last Admin: 11/27/23 06:12 Dose: 15 mg Documented By: VINOD Ondansetron HCl (Ondansetron 4 Mg/2 Ml Inj) 4 mg IV NOW ONE Stop: 11/27/23 06:09 Last Admin: 11/27/23 06:15 Dose: 4 mg Documented By: VINOD Vital Signs Vital signs: Vital Signs - 8 hr 11/27/23 08:57 Pulse Rate 56 L Respiratory Rate 22 Blood Pressure 118/63 Pulse Oximetry 96 Oxygen Delivery Method Room Air MDM - Male Genitourinary <Tess More MD - Last Filed: 11/27/23 15:25> Lab Data 11/27/23 06:05 11/27/23 06:05 Labs: Lab Results 11/27/23 Range/Units 06:05 WBC 7.0 (4.5-11.0) X10^3/uL RBC 4.95 (4.5-5.9) X10^6/uL Hgb 16.2 (13.5-17.5) g/dL Hct 47.3 (41-53) % MCV 95.5 (80-100) fL MCH 32.7 (26-34) PG MCHC 34.2 (30-36) % RDW 13.1 (11.6-14.8) % Plt Count 253 (150-400) X10^3/uL Neut % (Auto) 50.9 (50-75) % Lymph % (Auto) 38.2 (25-40) % [place] % (Auto) 8.4 (3-14) % Eos % (Auto) 1.6 L (2-4) % Baso % (Auto) 0.9 (0-2) % Neut # (Auto) 3600 (5743-8823) /uL Lymph # (Auto) 2700 (3286-2876) /uL [place] # (Auto) 600 (0-900) /uL Eos # (Auto) 100 (0-450) /uL Baso # (Auto) 100 (0-100) /uL PT 13.1 H (9.4-12.5) SECONDS INR 1.1 (0.9-1.3) Sodium 140 (137-145) mmol/L Potassium 4.0 (3.4-5.1) mmol/L Chloride 106 (98-107) mmol/L Carbon Dioxide 26 (22-32) mmol/L BUN 15 (9-20) mg/dL Creatinine 1.16 (0.66-1.25) mg/dL Estimated GFR > 60 (>60) mL/min BUN/Creatinine Ratio 12.9 (6-22) Glucose 131 H (80-110) mg/dL Calcium 9.8 (8.4-10.2) mg/dL Total Bilirubin 1.0 (0.2-1.3) mg/dL AST 25 (17-59) IU/L ALT 24 (<50) IU/L Alkaline Phosphatase 62 (38-126) U/L Ammonia < 9 L (9-30) umol/L Total Protein 7.9 (6.3-8.2) g/dL Albumin 4.7 (3.5-5.0) g/dL Globulin 3.2 (1.7-4.1) g/dL Albumin/Globulin Ratio 1.5 (1.0-2.8) Lipase 74 (23-300) U/L Urine Dip Bedside Urine Glucose Negative Bedside Urine Bilirubin - Negative Bedside Urine Ketone - Negative Urine Specific [place] 1.020 Bedside Urine Occult Blood - Negative Bedside Urine pH 6.0 Bedside Urine Protein +/- 15 Bedside Urine Urobilinogen - Negative Bedside Urine Nitrite - Negative Bedside Urine Leukocytes - Negative Esterase MDM Narrative Medical decision making narrative: Acute onset right-sided flank pain, concerning for kidney stone. Patient was tearful and does appear to be uncomfortable. Laboratory work, CT imaging ordered for assessment. Toradol, Zofran, and IV fluids ordered. Care of patient signed to Dr. Reid at 0700 Dr reid: Received turned over. Review patient's history and physical and workup up to this point. CT scan shows distal 2 mm UVJ calculus with moderate right hydro nephrosis. Urinalysis shows no signs of infection. He is tolerating oral intake. Will discharge patient home with symptom treatment. He was given strict return precautions. He expressed understanding and agreement. <Pete Reid DO - Last Filed: 11/27/23 08:43> Lab Data Labs: Lab Results 11/27/23 Range/Units 06:05 WBC 7.0 (4.5-11.0) X10^3/uL RBC 4.95 (4.5-5.9) X10^6/uL Hgb 16.2 (13.5-17.5) g/dL Hct 47.3 (41-53) % MCV 95.5 (80-100) fL MCH 32.7 (26-34) PG MCHC 34.2 (30-36) % RDW 13.1 (11.6-14.8) % Plt Count 253 (150-400) X10^3/uL Neut % (Auto) 50.9 (50-75) % Lymph % (Auto) 38.2 (25-40) % [place] % (Auto) 8.4 (3-14) % Eos % (Auto) 1.6 L (2-4) % Baso % (Auto) 0.9 (0-2) % Neut # (Auto) 3600 (4430-8701) /uL Lymph # (Auto) 2700 (0807-4405) /uL [place] # (Auto) 600 (0-900) /uL Eos # (Auto) 100 (0-450) /uL Baso # (Auto) 100 (0-100) /uL PT 13.1 H (9.4-12.5) SECONDS INR 1.1 (0.9-1.3) Sodium 140 (137-145) mmol/L Potassium 4.0 (3.4-5.1) mmol/L Chloride 106 (98-107) mmol/L Carbon Dioxide 26 (22-32) mmol/L BUN 15 (9-20) mg/dL Creatinine 1.16 (0.66-1.25) mg/dL Estimated GFR > 60 (>60) mL/min BUN/Creatinine Ratio 12.9 (6-22) Glucose 131 H (80-110) mg/dL Calcium 9.8 (8.4-10.2) mg/dL Total Bilirubin 1.0 (0.2-1.3) mg/dL AST 25 (17-59) IU/L ALT 24 (<50) IU/L Alkaline Phosphatase 62 (38-126) U/L Ammonia < 9 L (9-30) umol/L Total Protein 7.9 (6.3-8.2) g/dL Albumin 4.7 (3.5-5.0) g/dL Globulin 3.2 (1.7-4.1) g/dL Albumin/Globulin Ratio 1.5 (1.0-2.8) Lipase 74 (23-300) U/L Urine Dip Bedside Urine Glucose Negative Bedside Urine Bilirubin - Negative Bedside Urine Ketone - Negative Urine Specific [place] 1.020 Bedside Urine Occult Blood - Negative Bedside Urine pH 6.0 Bedside Urine Protein +/- 15 Bedside Urine Urobilinogen - Negative Bedside Urine Nitrite - Negative Bedside Urine Leukocytes - Negative Esterase Imaging Data CT scan - abdomen/pelvis: Radiologist's Impression: Moderate right hydro ureteral nephrosis and perinephric/periureteral inflammatory changes with an obstructing 2 mm UVJ calculus MDM Narrative Medical decision making narrative: Acute onset right-sided flank pain, concerning for kidney stone. Patient was tearful and does appear to be uncomfortable. Laboratory work, CT imaging ordered for assessment. Toradol, Zofran, and IV fluids ordered. Dr reid: Received turned over. Review patient's history and physical and workup up to this point. CT scan shows distal 2 mm UVJ calculus with moderate right hydro nephrosis. Urinalysis shows no signs of infection. He is tolerating oral intake. Will discharge patient home with symptom treatment. He was given strict return precautions. He expressed understanding and agreement. Discharge Plan Departure Patient Disposition: Home Clinical Impression: Renal colic on right side Instructions: Kidney Stones -- Adult Activity Restrictions/Additional Instructions: You can eat and drink like normal. Use the pain medicine and nausea medicine as needed. Be sure that you were increasing your fluid intake. Return to the emergency department for new or worsening symptoms. Prescriptions: New hydrocodone-acetaminophen 5-325 mg tablet 1 tab PO Q8H PRN (Reason: pain) Qty: 10 0RF ondansetron 4 mg tablet,disintegrating 4 mg PO Q6H PRN (Reason: nausea and vomiting) Qty: 10 0RF No Action metoprolol succinate 25 mg tablet extended release 24 hr 25 mg PO BID Qty: 180 0RF Rx Instructions: APPT DUE WITH PCP. PLEASE CALL TO SCHEDULE APPT BEFORE END OF RX/FUTURE FILLS. THANK YOU 02/10/23. dabigatran etexilate 150 mg capsule 150 mg PO BID Qty: 60 2RF fluocinonide 0.05 % ointment 1 applic topical BID-QID PRN (Reason: dry skin) Qty: 60 3RF Referrals: Keo Taylor DO [Primary Care Provider] - Stand Alone Forms: Patient Portal/API
[2023-11-27 06:27] LABS: Add Manual Diff / Slide Review NO; Basophils Absolute Auto 100 /uL (0-100); Basophils Percent Auto 0.9 % (0-2); Eosinophils Absolute Auto 100 /uL (0-450); Eosinophils Percent Auto 1.6 % (2-4); Hematocrit 47.3 % (41-53); Hemoglobin 16.2 g/dL (13.5-17.5); Lymphocytes Absolute Auto 2700 /uL (1100-4500); Lymphocytes Percent Auto 38.2 % (25-40); Mean Corpuscular HGB Conc 34.2 % (30-36); Mean Corpuscular Hemoglobin 32.7 PG (26-34); Mean Corpuscular Volume 95.5 fL (80-100); Monocytes Absolute Auto 600 /uL (0-900); Monocytes Percent Auto 8.4 % (3-14); Neutrophils Absolute Auto 3600 /uL (1500-7000); Neutrophils Percent Auto 50.9 % (50-75); Platelet Count 253 X10^3/uL (150-400); Red Blood Cell Count 4.95 X10^6/uL (4.5-5.9); Red Cell Distribution Width 13.1 % (11.6-14.8)
[2023-11-27 06:35] LABS: Alanine Aminotransferase 24 IU/L (<50); Albumin 4.7 g/dL (3.5-5.0); Albumin Globulin Ratio 1.5 (1.0-2.8); Alkaline Phosphatase 62 U/L (38-126); Ammonia (NH3) < 9 umol/L (9-30); Aspartate Aminotransferase 25 IU/L (17-59); BUN Creatinine Ratio 12.9 (6-22); Blood Urea Nitrogen 15 mg/dL (9-20); Calcium 9.8 mg/dL (8.4-10.2); Carbon Dioxide 26 mmol/L (22-32); Chloride 106 mmol/L (98-107); Estimated Glomerular Filt Rate > 60 mL/min (>60); Globulin 3.2 g/dL (1.7-4.1); Glucose 131 mg/dL (80-110); HEMOLYSIS < 15 (0-50); Lipase 74 U/L (23-300); Sodium 140 mmol/L (137-145); Total Protein 7.9 g/dL (6.3-8.2)
[2023-11-27 06:36] LABS: INR 1.1 (0.9-1.3); Prothrombin Time 13.1 SECONDS (9.4-12.5)
[2023-11-27] MEDS: HYDROMORPHONE 1 MG INJ IV (07:19)
[2023-11-27 08:57] VITALS: BP 118/63; PULSE 56; RESP 22; O2SAT 96
== END 2023-11-27 09:00 | disposition home or self-care (01) ==
PROVIDERS: Emergency Medicine; Emergency Provider Emergency Medicine; PCP Family Medicine
DX: N23 Unspecified renal colic (principal); Z87.442 Personal history of urinary calculi; Z79.01 Long term (current) use of anticoagulants
CPT/HCPCS: 36415; 51798; 74176; 80053; 81003; 82140; 83690; 85025; 85610; 96361; 96374; 96375; 99284; J1170; J1885; J2405

== ENCOUNTER 2024-01-17 14:57 | Day surgery (SDC) | payer OTHER, SELFPAY ==
[2022-02-22 15:40] VITALS: BMI 26.4
[2024-01-15 12:35] VITALS: BMI 26.8
--- NOTE | 2024-01-16 07:46 | PM.PREOP ---
Pre-operative Note Interval Note History & Physical reviewed/Exam performed by Physician: Yes Changes to H&P: No
[2024-01-17 15:27] VITALS: BMI 26.8
[2024-01-17 15:30] VITALS: BP 137/78; PULSE 55; RESP 16; TEMP 36.3; O2SAT 99
[2024-01-17] MEDS: LACTATED RINGERS 1,000 ML 42 ML IV (15:33)
[2024-01-17] MEDS: ACETAMINOPHEN 325 MG TABLET 975 MG PO (15:35)
--- NOTE | 2024-01-17 15:47 | SUR.OPER ---
Supine on padded OR bed, head on pillow, arms secured on padded arm boards at <90 degrees abduction, legs uncrossed, safety belt at thigh, tape over blanket over lower legs.
[2024-01-17] MEDS: CEFAZOLIN 2 GM/100 ML PREMIX 100 ML IV (16:10)
[2024-01-17] MEDS: BUPIVACAINE 0.25% (PF) VIAL 30 ML INJ (16:31)
[2024-01-17 16:53] VITALS: BP 146/77; PULSE 56; RESP 13; TEMP 36.2; O2SAT 94
--- NOTE | 2024-01-17 17:00 | PM.OP.1 ---
Operative Date/Time/Diagnoses Date of procedure: 01/17/24 Time of procedure: 17:04 Pre-op diagnosis: Umbilical hernia Post-op diagnosis: same Procedure & Clinicians Procedure: Open umbilical hernia repair Same procedure as scheduled: Yes Indications: Symptomatic umbilical hernia Surgeon: [facility] Manager: Julio Bravo Anesthesia Type: General Operative Notes Findings: 3 cm fascial defect containing omentum Specimen(s): none sent Estimated Blood Loss (mL): 20 Procedure in detail: Patient was brought to the operating room placed supine on the table. Bilateral lower extremity compression devices were applied. General anesthesia was induced and they were intubated with an endotracheal tube. They received 2 g of Ancef prior to skin incision. They were prepped and draped in sterile fashion. A time-out was performed. A curvilinear incision was made inferior to the umbilicus. The subcutaneous tissues were divided. The umbilical hernia was identified and the hernia sac was dissected off the umbilical skin and circumferentially off of the fascia defect. The hernia sac was sharply opened and contained viable omentum. The omentum was reduced back into the abdomen. Using blunt dissection I carefully carefully freed the hernia sac from beneath the fascia defect in order to accomodate the mesh. The fascia defect was 3 cm in maximal diameter. A Bard Ventralex ST hernia patch 6 cm was inserted beneath the fascia defect and above the peritoneum in a sublay position. The mesh was anchored in multiple locations using Ethibond suture to the fascia and the fascial defect was closed over the mesh. The umbilical skin was tacked to the subcutaneous tissues and then the remainder of the subcutaneous tissues were reapproximated using 3 0 Vicry,l skin closed with 4 0 Monocryl followed by the application of Dermabond and Steri-Strips. Sponge instrument count at the end of the operation was correct. Patient tolerated procedure well was extubated and transferred to postoperative care unit in stable condition. Complications: none Post-operative Condition: stable Disposition: same day surgery
[2024-01-17 17:05] VITALS: BP 124/75; PULSE 55; RESP 20; O2SAT 98
[2024-01-17 17:10] VITALS: BP 124/77; PULSE 59; RESP 17; O2SAT 96
[2024-01-17 17:24] VITALS: BP 120/80; PULSE 58; RESP 22; O2SAT 97
== END 2024-01-17 17:35 | disposition home or self-care (01) ==
PROVIDERS: PCP Family Medicine; Referring Provider Surgery; Visit Provider Surgery
PROC: (CPT 49593; principal; 2024-01-17 14:45)
DX: K42.9 Umbilical hernia without obstruction or gangrene (principal)
CPT/HCPCS: 49593; C1781; J0690; J1100; J2405; J2704; J3010

== ENCOUNTER → 2024-05-01 06:54 | Outpatient (CLI) | payer OTHER, SELFPAY ==
[2022-02-22 15:40] VITALS: BMI 26.4
[2024-05-01 09:12] LABS: Add Manual Diff / Slide Review NO; Basophils Absolute Auto 0 /uL (0-100); Basophils Percent Auto 0.5 % (0-2); Eosinophils Absolute Auto 100 /uL (0-450); Eosinophils Percent Auto 2.3 % (2-4); Hematocrit 46.5 % (41-53); Hemoglobin 15.6 g/dL (13.5-17.5); Lymphocytes Absolute Auto 2300 /uL (1100-4500); Lymphocytes Percent Auto 39.1 % (25-40); Mean Corpuscular HGB Conc 33.6 % (30-36); Mean Corpuscular Hemoglobin 32.5 PG (26-34); Mean Corpuscular Volume 96.6 fL (80-100); Monocytes Absolute Auto 400 /uL (0-900); Monocytes Percent Auto 7.2 % (3-14); Neutrophils Absolute Auto 3000 /uL (1500-7000); Neutrophils Percent Auto 50.9 % (50-75); Platelet Count 221 X10^3/uL (150-400); Red Blood Cell Count 4.81 X10^6/uL (4.5-5.9); White Blood Cell Count 5.9 X10^3/uL (4.5-11.0)
[2024-05-01 09:33] LABS: Alanine Aminotransferase 20 IU/L (<50); Albumin 4.1 g/dL (3.5-5.0); Albumin Globulin Ratio 1.6 (1.0-2.8); Alkaline Phosphatase 53 U/L (38-126); Aspartate Aminotransferase 26 IU/L (17-59); BUN Creatinine Ratio 13.9 (6-22); Bilirubin Total 0.8 mg/dL (0.2-1.3); Blood Urea Nitrogen 16 mg/dL (9-20); Calcium 9.6 mg/dL (8.4-10.2); Carbon Dioxide 28 mmol/L (22-32); Chloride 105 mmol/L (98-107); Cholesterol 169 mg/dL (140-199); Estimated Glomerular Filt Rate > 60 mL/min (>60); Globulin 2.5 g/dL (1.7-4.1); Glucose 96 mg/dL (80-110); HDL Cholesterol 50 mg/dL (40-60); HEMOLYSIS 27 (0-50); LDL Cholesterol Calculated 104 mg/dL (<100); Potassium 4.6 mmol/L (3.4-5.1); Sodium 141 mmol/L (137-145); Total Protein 6.6 g/dL (6.3-8.2); Triglycerides 76 mg/dL (35-150)
[2024-05-01 10:03] LABS: Prostate Specific Antigen < 0.064 ng/mL (0.10-4.00)
== END ==
PROVIDERS: PCP Family Medicine; Referring Provider Family Medicine; Visit Provider Family Medicine
DX: I48.0 Paroxysmal atrial fibrillation (principal); E78.2 Mixed hyperlipidemia; Z85.46 Personal history of malignant neoplasm of prostate; Z86.718 Personal history of other venous thrombosis and embolism; Z79.899 Other long term (current) drug therapy
CPT/HCPCS: 36415; 80053; 80061; 84153; 85025

== ENCOUNTER → 2024-10-03 08:57 | Outpatient (CLI) | payer MEDICARE, SELFPAY ==
[2022-02-22 15:40] VITALS: BMI 26.4
== END ==
PROVIDERS: PCP Family Medicine; Referring Provider Family Medicine; Visit Provider Family Medicine
DX: Z12.11 Encounter for screening for malignant neoplasm of colon (principal)
CPT/HCPCS: 82274